=== PATIENT | female | born 1960 | race Caucasian/White ===

== ENCOUNTER 2018-12-08 12:51 | Inpatient (IN) | payer MEDICAID ==
[~2018-12-08] VITALS: Ht 165.1 cm; Wt 101.5 kg
[2018-12-08] MEDS ORDERED: acetaminophen 325mg tablet PO PRN ×2 (14:25)
[2018-12-08] MEDS ORDERED: mag hydrox/Alum hydrox/simeth 30ml oral suspension PO PRN (14:25)
[2018-12-08] MEDS ORDERED: magnesium hydroxide 30ml (MOM) UD suspension PO PRN (14:25)
[2018-12-08] MEDS ORDERED: tuberculin, purif. prot. deriv. 5 units/0.1ml ID ONE (14:25)
--- NOTE | 2018-12-08 17:42 | NUR ---
Nursing ADMIT Progress Note Legal hold: 5150 Client on involuntary status for DTS Report received from: New admit Why are they here: Patient is a 57 year old female who suffers from chronic back pain, anxiety and depression. She was admitted to [facility] after being found face down on the floor with 24, 50mcg fentanyl patches covering her body. A suicide note was found. [place] coma score was 4, respirations decreased and 4mg of Narcan were administered. GCS improved to 10. Other meds found at the scene include baclofen, prochlorperazine, desvenlafaxine, levothyroxine, hydrocodone and oxycontin. *hypothyroidism Assessment What has happened this shift: Patient is brought up to the unit, she points at everyone and states You want Thorazine. She is oriented to the unit by Alexander Dumont and when brought back to her room repeatedly pushes the nurses call button for no reason. She is invasive in other patients space and pushes buttons on roommates bed. Patient has difficulty focusing on task. She refuses to change into unit attire but with redirection does change her pants. RN was able to get patient to sign 2 forms but then patient wanted to draw a picture on the form rather than sign. Patient was not cooperative with admit process. She refused to answer all questions asked. Information obtained was taken from report received from [facility]. Patient states that she is cold and requests another blanket. Shortly after she falls asleep. S/I, H/I: did not answer questions when asked A/VH: did not answer questions when asked Sleep: slept after getting onto the floor ADL's: may need assistance, states she is a fall risk Group attendance:no Were meds taken: N/A Any med S/E: N/A Mental Status Exam Appearance: patient changes into green scrub pants, declines to change into green scrub shirt, hair pulled back into braid. Eye contact: occasional direct Behavior: Bizarre, agitated Speech: varied Mood: Labile...friendly, mild aggression, confused, direct, quiet Affect: restricted Thought process: Disorganized, tangential Thought Content: focused on other people needing/wanting to take Thorazine Cognition: Impaired Insight: Poor Judgment: Poor Interventions PRN's used: none Therapeutic interventions: 1:1 therapeutic assessment, active listening that included positive feedback, medication education, and monitoring, maintained safe therapeutic milieu, encouraged to attend groups, Q 15 min safety checks. Restraints/seclusion/emergency medication: N/A Justification of Continued Inpatient Treatment: Continued therapeutic support and medication management needed to provide stabilization, prevent decompensation and decreasing risk to patient for readmittance.
[2018-12-08] MEDS ORDERED: METO25TA6 PO (19:48)
[2018-12-08] MEDS ORDERED: ASPI81TA47 PO (19:48)
[2018-12-08] MEDS ORDERED: HYDR-4353 PO (19:48)
[2018-12-08] MEDS ORDERED: DOCU100C40 PO (19:48)
[2018-12-08] MEDS ORDERED: CLON-528 PO (19:48)
[2018-12-08] MEDS ORDERED: LEVO25TA7 PO (19:48)
[2018-12-08] MEDS ORDERED: BACL10TA PO (19:48)
[2018-12-08 20:00] VITALS: BP 147/50
[2018-12-08] MEDS: baclofen 10mg tablet PO SCH (20:54)
[2018-12-08] MEDS: metoprolol tartrate 25mg tablet PO SCH (20:58)
--- NOTE | 2018-12-08 22:41 | NUR ---
Nursing Progress Note Legal hold: 5150 Client on involuntary status for DTS Report received from: NAHOMY Davis Why are they here: Patient is a 57 year old female who suffers from chronic back pain, anxiety and depression. She was admitted to [facility] after being found face down on the floor with 24, 50mcg fentanyl patches covering her body. A suicide note was found. [place] coma score was 4, respirations decreased and 4mg of Narcan were administered. GCS improved to 10. Other meds found at the scene include baclofen, prochlorperazine, desvenlafaxine, levothyroxine, hydrocodone and oxycontin. Assessment What has happened this shift: Pt in room sleeping at change of shift. During 1:1, pt state she is wet and cold. Pt had urinated, and the urine had soaked through her clothing and bedding. Pt taken to shower, given new unit scrubs, and bedding changed. Pt states she is incontinent of urine sometimes during the day, but does not wake up to urinate when sleeping. RN provided pt with XL depends and disposable chucks for the evening. Pt denies being suicidal, stating "I did it because the pain was too much. I knew I had the patches somewhere, and I was cleaning and found them and knew what I had to do. My brother got to me before I though. I guess he just loves me a whole bunch." When asked about her support system, pt states she has "my brother who found me, a couple other siblings, and a best friend. Most live in [place]." Pt states "the Dr wants to discontinue the medications, and I know that it is going to be too much pain." Pt does not know how she acquired her back pain, saying "Maybe in middle school sports." Pt offers the following regarding her overdose. "I just have to do this every 12 years. I take a lot and it resets my pain. Then I'm okay for a while." Pt is stable on her feet, but the pain makes position changes difficult. She states she uses a walker/can at home; PT consult will be ordered. Pt compliant with medications. reported being cold, warm blankets provided and room temperature increased. S/I, H/I:Denies A/VH: Denies Sleep: See Charting ADL's: Independent, may need standby until PT evaluates for walker Group attendance: Y - HS Snack Were meds taken: Y Any med S/E: None reported, None observed Mental Status Exam Appearance: Pt showered, wearing unit green pants, scrubs, and depends. Hair was not washed but it is clean and in a braid. Eye contact: Direct Behavior: Cooperative Speech: Slowed, Clear Mood: Friendly, Calm, "I feel okay, tired" Affect: Blunted Thought process: Linear, Tangential at times Thought Content: Being cold, Relaying her suicidal experience and reasoning Cognition: A&Ox4 Insight: Poor Judgment: Poor Interventions PRN's used:None Therapeutic interventions: 1:1 therapeutic assessment, active listening that included positive feedback, medication education, and monitoring, maintained safe therapeutic milieu, encouraged to attend groups, Q 15 min safety checks. Restraints/seclusion/emergency medication: N/A Justification of Continued Inpatient Treatment: Continued therapeutic support and medication management needed to provide stabilization, prevent decompensation and decreasing risk to patient for readmittance. Addendum: 12/08/18 at 2256 by Marilee Jeffers RN BP 142/75, HR 64 prior to Lopressor administration.
[2018-12-09 08:00] VITALS: BP 119/65
[2018-12-09 08:02] LABS: HEMOGLOBIN A1C 5.8 % (4.5-6.2)
[2018-12-09] MEDS: aspirin 81mg tablet.DR PO SCH (08:03)
[2018-12-09] MEDS: docusate sod 100mg capsule PO SCH (08:03)
[2018-12-09] MEDS: baclofen 10mg tablet PO SCH ×3 (08:03→20:23)
[2018-12-09] MEDS: levoTHYROXINE 25mcg tablet PO SCH (08:04)
[2018-12-09] MEDS: metoprolol tartrate 25mg tablet PO SCH ×2 (08:04→20:00)
[2018-12-09 08:08] LABS: CHOL/HDL RATIO 4.1 (0.00-4.99); CHOLESTEROL 176 MG/DL (0-200); HDL CHOLESTEROL 43 MG/DL (35-60); LDL CHOLESTEROL 111 MG/DL (50-100); TRIGLYCERIDES 77 MG/DL (20-135)
[2018-12-09] MEDS: HYDROcodone/acetaminophen 10/325mg tab PO PRN ×2 (08:20→17:02)
[2018-12-09] MEDS ORDERED: venlafaxine 25mg tablet PO ONE (15:50)
--- NOTE | 2018-12-09 16:16 | NUR ---
Nursing Progress Note Legal hold: 5150 Client on involuntary status for DTS Report received from: NAHOMY Davis Why are they here: Patient is a 57 year old female who suffers from chronic back pain, anxiety and depression. She was admitted to [facility] after being found face down on the floor with 24, 50mcg fentanyl patches covering her body. A suicide note was found. [place] coma score was 4, respirations decreased and 4mg of Narcan were administered. GCS improved to 10. Other meds found at the scene include baclofen, prochlorperazine, desvenlafaxine, levothyroxine, hydrocodone and oxycontin. Assessment What has happened this shift: Patient is sleeping at change of shift, no apparent distress observed. When she awakens she states that she is cold, hot tea provided. She gets up and joins others for breakfast in the group room. She takes her medications, education is provided. Patient expresses some upset that her pain meds and klonopin are not stronger. She requests both PRNS at this time. She states she doesnt understand why she cannot have more klonopin. RN provided related education, patient did not ask for it again. RN administered norco as prescribed. Patient uses foul language when describing techs, attempts by other staff to redirect patient to use less derogatory words was unsuccessful. Patient at times is friendly and at others times argumentative and inappropriate. She pulls food off other trays that patients have finished with. She is told not to but continues to do so. She states that she will not tell this RN if she is feeling suicidal stating I want to tell you the right thing so that I can go home. She also states in regards to her brother finding her that Its too bad he found me, Im never going to have the pain meds I need. Patient denies issues with incontinence during the day, she states it happens at night and is due to issues with her spine. S/I, H/I:Denies A/VH: Denies Sleep: 9.25 NOC ADL's: Independent Group attendance: yes Were meds taken: yes Any med S/E: None reported, None observed Mental Status Exam Appearance: Appropriately disheveled Eye contact: Direct Behavior: see above Speech: clear tone, slightly slowed rate and rhythm Mood: varied, see above Affect: Blunted Thought process: moments of tangents Thought Content: how people treat each other, saying the right thing Cognition: A&Ox4 Insight: Poor Judgment: Poor Interventions PRN's used:None Therapeutic interventions: 1:1 therapeutic assessment, active listening that included positive feedback, medication education, and monitoring, maintained safe therapeutic milieu, encouraged to attend groups, Q 15 min safety checks. Restraints/seclusion/emergency medication: N/A Justification of Continued Inpatient Treatment: Continued therapeutic support and medication management needed to provide stabilization, prevent decompensation and decreasing risk to patient for readmittance.
[2018-12-09 19:49] VITALS: BP 99/59
[2018-12-09] MEDS: clonazePAM 0.5mg tablet PO PRN (20:49)
--- NOTE | 2018-12-09 22:20 | NUR ---
Nursing Progress Note Legal hold: 5150 Client on involuntary status for DTS Report received from: NAHOMY Davis Why are they here: Patient is a 57 year old female who suffers from chronic back pain, anxiety and depression. She was admitted to [facility] after being found face down on the floor with 24, 50mcg fentanyl patches covering her body. A suicide note was found. [place] coma score was 4, respirations decreased and 4mg of Narcan were administered. GCS improved to 10. Other meds found at the scene include baclofen, prochlorperazine, desvenlafaxine, levothyroxine, hydrocodone and oxycontin. Assessment What has happened this shift: Pt was in group room at change of shift talking w/SW. 1:1 assessment completed at bedside. Pt denies s/i tonight. States her mood is "better". She had a visit w/family tonight and then socialized w/peers and played board games. She was very pleasant and kind to other patients and sang for them after her family left. She c/o arm wrist pain in her arm, we applied an ice pack for 20 minutes and she states this was helpful. Pt reports appetite is good. Held metoprolol due to bp and pt requested klonopin before going to bed. Pt c/o being cold, addtl blankets given and room temp increased. S/I, H/I:Denies A/VH: Denies Sleep: good ADL's: Independent Group attendance: yes Were meds taken: yes Any med S/E: None reported, None observed Mental Status Exam Appearance: Appropriately disheveled Eye contact: Direct Behavior: see above Speech: WNL Mood: Pleasant, but reports depression Affect: Blunted Thought process: tangential Thought Content: talking about wrist pain, and how she was afraid when she came here but is feeling better now that she is getting to know some of the other patients. Cognition: A&Ox4 Insight: Poor Judgment: Poor Interventions PRN's used:None Therapeutic interventions: 1:1 therapeutic assessment, active listening that included positive feedback, medication education, and monitoring, maintained safe therapeutic milieu, encouraged to attend groups, Q 15 min safety checks. Restraints/seclusion/emergency medication: N/A Justification of Continued Inpatient Treatment: Continued therapeutic support and medication management needed to provide stabilization, prevent decompensation and decreasing risk to patient for readmittance.
[2018-12-10] MEDS: HYDROcodone/acetaminophen 10/325mg tab PO PRN ×2 (05:54→21:23)
[2018-12-10 07:59] VITALS: BP 118/53
[2018-12-10] MEDS ORDERED: venlafaxine 25mg tablet PO SCH (08:00)
[2018-12-10] MEDS: baclofen 10mg tablet PO SCH ×3 (08:10→20:17)
[2018-12-10] MEDS: metoprolol tartrate 25mg tablet PO SCH ×2 (08:10→20:18)
[2018-12-10] MEDS: levoTHYROXINE 25mcg tablet PO SCH (08:11)
[2018-12-10] MEDS: aspirin 81mg tablet.DR PO SCH (08:11)
[2018-12-10] MEDS: docusate sod 100mg capsule PO SCH (08:11)
--- NOTE | 2018-12-10 12:53 | NUR ---
Nursing Progress Note Legal hold: 5250 - Court on 12/11 Client on involuntary status for GD/DTS Report received from NAHOMY Shafer Why they are here: Patient presented to ER reporting she ingested a large amount of Tylenol. She had just learned that her boyfriend had killed himself and she wanted to be with him. She continues to express a suicidal plan which involves cutting her wrists or jumping off of a bridge. Assessment: What has happened this shift? Patient is observed sleeping at change of shift. Patient was up for breakfast. Patient is social but also at time intrusive when other patients getting there medication. Patient has been irritable all morning about the remote. Staff attempts to assist patient in selecting a show but patient declines all suggestions. Patient cussing at staff and calling staff names, though no signs of aggression observed. Patient reports she is feeling depressed and has continued S/I with the same plan. She went to morning group today. She takes her medications with encouragement. S/I, H/I: SI with plan to either cut her wrists or jump off a building A/VH: Denies Sleep: 6.75 hrs last night. ADL's: independent, Group attendance: yes Were meds taken: yes Any med S/E: none observed, none reported Mental Status Exam Appearance: appropriate Eye contact: Direct Behavior: Cooperative Speech: soft tone, normal rate/rhythm Mood: Irritated Affect: Flat Thought process: Linear Thought Content: Suicidal thoughts Cognition: A&Ox4 Insight: Poor Judgment: Poor Interventions PRN's used: None Therapeutic interventions: 1:1 therapeutic assessment, active listening that included positive feedback, medication education, and monitoring, maintained safe therapeutic milieu, encouraged to attend groups, Q 15 min safety checks. Restraints/seclusion/emergency medication: None Justification of Continued Inpatient Treatment: Patient in crisis, suicide attempt due to loss of boyfriend. Continued therapeutic support and medication management needed to provide stabilization, prevent decompensation and decreasing risk to patient for readmittance.
[2018-12-10] MEDS ORDERED: clonazePAM 0.5mg tablet PO ONE (13:50)
[2018-12-10] MEDS: oxyCODONE SR 10mg (sust. release) tab PO SCH (20:16)
[2018-12-10 20:47] VITALS: BP 141/70
--- NOTE | 2018-12-11 01:20 | NUR ---
Nursing Progress Note Legal hold: 5250 - Court on 12/11 Client on involuntary status for GD/DTS Report received from NAHOMY Ferguson Why they are here: Patient presented to ER reporting she ingested a large amount of Tylenol. She had just learned that her boyfriend had killed himself and she wanted to be with him. She continues to express a suicidal plan which involves cutting her wrists or jumping off of a bridge. Assessment: Patient was sitting in the community room with peers, talking about another peer that was not in the room. She perseverated on this peer for a few minutes, paranoid that they might try to kill her in her sleep. She calls them names and is visibly getting worked up. Barrel Bander reminds pt that speaking badly about others was not nice, to which she just rolled her eyes. Barrel Bander reassured patient that she is safe on the unit, the halls are monitored, and Q15 minute safety checks are done around the clock. This statement made her smile and say, "good." She is cooperative with assessment and receives her HS medications which include OxyContin. When keno writer / runner gave her the medication she asks, "can't I have 2 oxys?" Barrel Bander educates pt on the medication and dosing, she verbalizes understanding. 60 minutes later pt comes up to keno writer / runner and requests prn [place]. Barrel Bander explains to pt that she just received her OxyContin 1 hour ago, but patient starts to get upset and says, "I know I did, but it didn't do anything, and I need the [place] now." Pt was given the norco, and she was upset there was "only one pill." She states, "these don't do anything." She denies any suicidal ideation, AH/VH. PPD read this evening at 2200, results 0mm induration S/I, H/I: Denies this shift A/VH: Denies Sleep: see sleep assessment notation ADL's: independent, Group attendance: teller vault, no groups Were meds taken: yes Any med S/E: none observed, none reported Mental Status Exam Appearance: slightly disheveled Eye contact: Direct Behavior: Cooperative, paranoid Speech: normal rate/rhythm Mood: paranoid Affect: Flat, labile Thought process: Linear Thought Content: perseverating on other patients Cognition: A&Ox4 Insight: Poor Judgment: Poor Interventions PRN's used: batsheva Therapeutic interventions: 1:1 therapeutic assessment, active listening that included positive feedback, medication education, and monitoring, maintained safe therapeutic milieu, reassured safety, Q 15 min safety checks. Restraints/seclusion/emergency medication: None Justification of Continued Inpatient Treatment: Patient in crisis, suicide attempt due to loss of boyfriend. Continued therapeutic support and medication management needed to provide stabilization, prevent decompensation and decreasing risk to patient for readmittance.
[2018-12-11] MEDS: baclofen 10mg tablet PO SCH ×3 (07:46→20:16)
[2018-12-11] MEDS: oxyCODONE SR 10mg (sust. release) tab PO SCH ×2 (07:47→20:18)
[2018-12-11] MEDS: docusate sod 100mg capsule PO SCH (07:48)
[2018-12-11] MEDS: levoTHYROXINE 25mcg tablet PO SCH (07:48)
[2018-12-11] MEDS: aspirin 81mg tablet.DR PO SCH (07:49)
[2018-12-11] MEDS: metoprolol tartrate 25mg tablet PO SCH ×2 (07:50→20:17)
[2018-12-11 07:55] VITALS: BP 122/59
[2018-12-11] MEDS ORDERED: venlafaxine XR 37.5mg cap (Q24H) PO SCH (08:00)
--- NOTE | 2018-12-11 10:40 | NUR ---
Nursing Progress Note Legal hold: 5250 - Court on 12/11 Client on involuntary status for GD/DTS Report received from NAHOMY Cullen with the use of SBAR Why they are here: Patient presented to ER reporting she ingested a large amount of Tylenol. She had just learned that her boyfriend had killed himself and she wanted to be with him. She continues to express a suicidal plan which involves cutting her wrists or jumping off of a bridge. Assessment: What has happened this shift? Pt in bed at the start of shift. She is incontinent of urine. Per YISEL Adames, the patient is soaked from her shoulders to her feet through the chux onto the mattress. Pt is fine if in control of the TV remote. She becomes angry if she does not have the TV on and control of what is being watched. S/I, H/I: SI with plan to either cut her wrists or jump off a building A/VH: Denies Sleep: Does not sleep during the day ADL's: Requires prompting to shower and care for ADLs Group attendance: yes Were Meds taken: yes Any med S/E: none observed, none reported Mental Status Exam Appearance: appropriate Eye contact: Direct Behavior: Cooperative Speech: soft tone, normal rate/rhythm Mood: Irritated Affect: Flat Thought process: Linear Thought Content: Suicidal thoughts Cognition: A&Ox4 Insight: Poor Judgment: Poor Interventions PRN's used: None Therapeutic interventions: 1:1 therapeutic assessment, active listening that included positive feedback, medication education, and monitoring, maintained safe therapeutic milieu, encouraged to attend groups, Q 15 min safety checks. Restraints/seclusion/emergency medication: None Justification of Continued Inpatient Treatment: Patient in crisis, suicide attempt due to loss of boyfriend. Continued therapeutic support and medication management needed to provide stabilization, prevent decompensation and decreasing risk to patient for readmittance. Addendum: 12/11/18 at 1755 moe Moran RN Pt is now on a Voluntary status
[2018-12-11] MEDS: HYDROcodone/acetaminophen 10/325mg tab PO PRN ×2 (16:55→21:34)
[2018-12-11] MEDS: clonazePAM 0.5mg tablet PO PRN (16:56)
[2018-12-11 19:00] VITALS: BP 117/72
--- NOTE | 2018-12-11 23:18 | NUR ---
Nursing Progress Note Legal hold: voluntary Client on involuntary status for DTS Report received from: NAHOMY Galo Why are they here: Patient is a 57 year old female who suffers from chronic back pain, anxiety and depression. She was admitted to [facility] after being found face down on the floor with 24, 50mcg fentanyl patches covering her body. A suicide note was found. [place] coma score was 4, respirations decreased and 4mg of Narcan were administered. GCS improved to 10. Other meds found at the scene include baclofen, prochlorperazine, desvenlafaxine, levothyroxine, hydrocodone and oxycontin. Assessment What has happened this shift: Patient had visitors this shift, which she appeared happy to see, smiling and laughing with them. When asked how her day went she replied, "it went fine, I want my drugs." Pt was educated on HS medication times and what medications she would be getting and she voiced understanding. Pt was medication compliant, and cooperative with assessment. Right before bed she said to remote mortgage underwriter, "you know the girl next door wants to kill me right?" "You need to keep an eye on my room tonight to make sure she can't come in and kill me." Cake Puncher assured pt of safety. She also requested to be woken up at 0400 to go to the bathroom to try to prevent from wetting the bed. S/I, H/I:Denies A/VH: Denies Sleep: see sleep assessment notation ADL's: Independent Group attendance: maintenance technician 3rd shift, no groups Were meds taken: yes Any med S/E: None reported, None observed Mental Status Exam Appearance: wearing same clothing as yesterday Eye contact: Direct Behavior: talkative, engages with staff and visitors Speech: WNL Mood: paranoid Affect: flat Thought process: circumstantial Thought Content: paranoia Cognition: A&Ox4 Insight: Poor Judgment: Poor Interventions PRN's used:[place] Therapeutic interventions: 1:1 therapeutic assessment, active listening that included positive feedback, medication education, and monitoring, maintained safe therapeutic milieu, Q 15 min safety checks. Restraints/seclusion/emergency medication: N/A Justification of Continued Inpatient Treatment: Continued therapeutic support and medication management needed to provide stabilization, prevent decompensation and decreasing risk to patient for readmittance.
[2018-12-12] MEDS: HYDROcodone/acetaminophen 10/325mg tab PO PRN (05:29)
[2018-12-12 07:55] VITALS: BP 125/53
[2018-12-12] MEDS ORDERED: PRISTIQ 100 MG PO SCH ×2 (08:00)
[2018-12-12] MEDS: oxyCODONE SR 10mg (sust. release) tab PO SCH (08:02)
[2018-12-12] MEDS: docusate sod 100mg capsule PO SCH (08:02)
[2018-12-12] MEDS: aspirin 81mg tablet.DR PO SCH (08:02)
[2018-12-12] MEDS: levoTHYROXINE 25mcg tablet PO SCH (08:02)
[2018-12-12] MEDS: baclofen 10mg tablet PO SCH ×2 (08:03→13:53)
[2018-12-12 08:04] VITALS: BP_SYST 125
[2018-12-12] MEDS: metoprolol tartrate 25mg tablet PO SCH (08:04)
--- NOTE | 2018-12-12 12:30 | NUR ---
Nursing Progress Note Legal hold: Voluntary Client on involuntary status for DTS Report received from: NAHOMY Williamson Why are they here: Patient is a 57 year old female who suffers from chronic back pain, anxiety and depression. She was admitted to [facility] after being found face down on the floor with 24, 50mcg fentanyl patches covering her body. A suicide note was found. [place] coma score was 4, respirations decreased and 4mg of Narcan were administered. GCS improved to 10. Assessment What has happened this shift: Pt awake laying in bed on her back at the start of shift complaining, "I am so cold I am going to have a stroke." Pt provided warm blanket. She is medication compliant requesting to take AM dose of Oxycontin even after being given a [place] PRN approximately 90 minutes ago. Oxybutnin added to medication regimen due to nighttime incontinence S/I, H/I:Denies A/VH: Denies Sleep: does not sleep during the day. ADL's: Independent Group attendance: Y Were Meds taken: Y Any med S/E: None reported, None observed Mental Status Exam Appearance: Appropriately dressed and clean Eye contact: Direct Behavior: talkative, engages with staff and visitors Speech: WNL Mood: Irritable, inpatient w/staff Affect: flat Thought process: circumstantial Thought Content: Defensiveness Cognition: A&Ox4 Insight: Poor Judgment: Poor Interventions PRN's used: None Therapeutic interventions: 1:1 therapeutic assessment, active listening that included positive feedback, medication education, and monitoring, maintained safe therapeutic milieu, Q 15 min safety checks. Restraints/seclusion/emergency medication: N/A Justification of Continued Inpatient Treatment: Pt appears to be at her baseline as she is no longer suicidal. Pt reports she became suicidal after being told by Dr. Sultana that he was going to have to taper her off of Oxycontin. Pt reports chronic "unbearable" pain in her spine and legs and the thought of living in pain was "too much." Per pt. Dr. Moran and Dr. Sultana met and discussed out-pt treatment.
[2018-12-12] MEDS ORDERED: oxybutynin 5mg tablet PO SCH (13:00)
--- NOTE | 2018-12-12 13:20 | NUR ---
DISCHARGE NOTE Pt met with this lyric writer and her brother for discharge. Pt agreed to follow up with PCP and Dr. Fitzgerald for out pt services. Appt. are scheduled pt agrees to go. Provided education on the [facility] in [place] provided address and phone number encouraging pt to seek treatment through this clinic. All home prescription Meds stored in the pharmacy returned to pt. to take home. Personal belongings inventoried and reviewed w/pt and all signatures obtained from pt. Pt left to go to home with her brother, Greg.
[2018-12-12] MEDS ORDERED: OXYC10TA57 PO (21:46)
== END 2018-12-12 13:20 | disposition home or self-care (01) | DRG 754 ==
LOC: ADULT MH 14:07
PROVIDERS: ADMIT Psychiatry & Neurology Psychiatry; ATTEND Psychiatry & Neurology Psychiatry
DX: F32.9 Major depressive disorder, single episode, unspecified (principal); E66.01 Morbid (severe) obesity due to excess calories; E03.9 Hypothyroidism, unspecified; E11.9 Type 2 diabetes mellitus without complications; E78.5 Hyperlipidemia, unspecified; G89.29 Other chronic pain; I10 Essential (primary) hypertension; M19.90 Unspecified osteoarthritis, unspecified site; R32 Unspecified urinary incontinence; Z96.653 Presence of artificial knee joint, bilateral; Z60.2 Problems related to living alone; F60.9 Personality disorder, unspecified; T40.4X2A Poisoning by other synthetic narcotics, intentional self-harm, initial encounter; M54.9 Dorsalgia, unspecified; Z88.0 Allergy status to penicillin; F41.9 Anxiety disorder, unspecified; Z79.899 Other long term (current) drug therapy; Z88.2 Allergy status to sulfonamides; Z88.1 Allergy status to other antibiotic agents; Z88.8 Allergy status to other drugs, medicaments and biological substances; Z79.82 Long term (current) use of aspirin; Z79.890 Hormone replacement therapy; Z68.37 Body mass index [BMI] 37.0-37.9, adult; Z72.89 Other problems related to lifestyle; Y92.89 Other specified places as the place of occurrence of the external cause
CPT/HCPCS: 36415; 73100; 80061; 83036; 84443; 87070

== ENCOUNTER 2019-01-16 20:49 | Emergency (ER) | payer MEDICAID ==
[~2019-01-16] VITALS: Ht 162.6 cm; Wt 156.8 kg
[~2019-01-16 20:49] MED LIST: ASPI81TA47 PO; BACL10TA PO; CLON-528 PO; DOCU100C40 PO; HYDR-4353 PO; LEVO25TA7 PO; METO25TA6 PO; OXYC10TA57 PO
[2019-01-16 23:53] LABS: BASOPHILS # (AUTO) 0.1 X10'3 (0-0.2); BASOPHILS % (AUTO) 0.8 % (0-1); EOSINOPHILS # (AUTO) 0.1 X10'3 (0-0.9); EOSINOPHILS % (AUTO) 1.4 % (0-6); HEMATOCRIT 44.6 % (35.0-45.0); HEMOGLOBIN 14.9 g/dl (12.0-16.0); LYMPHOCYTES % (AUTO) 33.7 % (21-51); MEAN CORPUSCULAR HEMOGLOBIN 30.8 PG (27.0-31.0); MEAN CORPUSCULAR HGB CONC 33.4 g/dL (33.0-36.5); MEAN CORPUSCULAR VOLUME 92.2 FL (78-98); MEAN PLATELET VOLUME 7.9 FL (7.4-10.4); MONOCYTES % (AUTO) 11.6 % (2-12); NEUTROPHILS # (AUTO) 4.7 X10'3 (1.8-7.7); NEUTROPHILS % (AUTO) 52.5 % (42-75); PLATELET COUNT 342 X10'3 (140-440); RED BLOOD COUNT 4.84 X10'6 (4.20-5.60); RED CELL DISTRIBUTION WIDTH 12.8 % (11.5-14.5); WHITE BLOOD COUNT 8.9 X10'3 (4.5-11.0)
[2019-01-16 23:58] LABS: ALANINE AMINOTRANSFERASE 138 U/L (12-78); ALBUMIN 4.1 G/DL (3.4-5.0); ALBUMIN/GLOBULIN RATIO 1.1 (1.1-1.5); ALKALINE PHOSPHATASE 59 IU/L (46-116); ANION GAP 10 (8-16); ASPARTATE AMINO TRANSFERASE 56 U/L (10-37); BILIRUBIN,TOTAL 0.4 MG/DL (0.1-1.0); BLOOD UREA NITROGEN 16 MG/DL (7-18); BUN/CREATININE RATIO 14.8 (6.6-38.0); CHLORIDE 102 MMOL/L (99-107); CREATININE 1.08 MG/DL (0.40-0.90); GLUCOSE 123 MG/DL (70-104); POTASSIUM 3.5 MMOL/L (3.5-5.1); SODIUM 137 MMOL/L (135-145); TOTAL CARBON DIOXIDE 25.1 MMOL/L (24-32); TOTAL PROTEIN 7.7 G/DL (6.4-8.2); eGFR 52 ML/MIN
[2019-01-17 00:06] LABS: ETHANOL < 0.010 GM/DL (0.0-0.010)
--- NOTE | 2019-01-17 03:04 | NUR ---
WAITING FOR TELE-PSYCH MD AND THEN POSSIBLE DISCHARGE.
--- NOTE | 2019-01-17 04:59 | NUR ---
I CALLED TELE-PSYCH, PT IS IN THE [facility], THEY ARE EXPERIENCING HIGH CALL VOLUMES AND DO NOT KNOW WHEN THE TELE-PSYCH CALL WILL BE.
--- NOTE | 2019-01-17 05:01 | NUR ---
PT SLEEPING, FAMILY MEMBER AT THE BEDSIDE.
--- NOTE | 2019-01-17 07:23 | NUR ---
SPOKE WITH TELEPSYC MD AND UPDATED ON PLAN. STATED WILL SPEAK TO PT THEN FAMILY AFTERWARDS. TELEPSYC IN ROOM PT SAT UP IN BED WITH LIGHTS ON. VERBALIZED UNDERSTANDING OF SPEAKING TO PSTUCKER BACA.
[2019-01-17 08:32] LABS: CLARITY,URINE CLEAR (Clear); COLOR,URINE YELLOW (Yellow); GLUCOSE, URINE NEGATIVE (Neg); KETONES,URINE NEGATIVE (Neg); LEUKOCYTE ESTERASE ,URINE NEGATIVE (Neg); NITRITES, URINE NEGATIVE (Neg); OCCULT BLOOD,URINE NEGATIVE (Neg); PROTEIN,URINE NEGATIVE (Neg); UROBILINOGEN,URINE 0.2 E.U/dL (0.2-1.0)
[2019-01-17 08:34] LABS: UA COLLECTION TYPE STRAIGHT CATH
[2019-01-17 08:45] LABS: URINE AMPHETAMINE SCREEN NEGATIVE (Neg); URINE BARBITUATE SCREEN NEGATIVE (Neg); URINE BENZODIAZEPINES SCREEN NEGATIVE (Neg); URINE CANNABINOID SCREEN NEGATIVE (Neg); URINE COCAINE SCREEN NEGATIVE (Neg); URINE METHADONE SCREEN NEGATIVE (Neg); URINE OPIATE SCREEN POSITIVE (Neg); URINE PHENCYCLIDINE SCREEN NEGATIVE (Neg)
--- NOTE | 2019-01-17 11:07 | NUR ---
pt up to use restroom, ambulated slowly, but gait steady.
--- NOTE | 2019-01-17 11:07 | NUR ---
pt moved via wheelchair to bed 24 in OF.
[2019-01-17] MEDS ORDERED: LEVO500T2 PO (11:53)
[2019-01-17] MEDS ORDERED: CITA10TA9 PO (11:53)
[2019-01-17] MEDS: levoFLOXACIN 500mg tablet PO SCH (12:30)
[2019-01-17] MEDS ORDERED: CITALOpram 10mg tablet PO SCH (12:30)
[2019-01-17] MEDS: metoprolol tartrate 25mg tablet PO SCH ×2 (12:51→20:50)
--- NOTE | 2019-01-17 13:02 | NUR ---
Nursing Note: Pt's sister reports she gave the pt Levofloxacin this morning. Held 1230 dose of medication. Will continue to monitor.
--- NOTE | 2019-01-17 14:05 | NUR ---
pt is having consult with Rachel from mental health now.
--- NOTE | 2019-01-17 14:28 | NUR ---
pt is sitting quietly in bed
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
--- NOTE | 2019-01-17 17:14 | NUR ---
Nursing Note: Dr. Hernandez at the pt's bedside to assess pt. Pt's brother and sister also at bedside. Will continue to monitor.
--- NOTE | 2019-01-17 19:23 | NUR ---
Dr Hernandez on unit to evaluate pt and speak with family.
--- NOTE | 2019-01-17 19:36 | NUR ---
pt has open head wound on the crown of her head left of midline. Wound is 1.2 x 2 cm and appears superficial, wound bed pink granulation tissue. Wound edges clean. Scant clear, serous drainge. Picture taken, bacitracin and dressing applied. Pt states that she fell and hit her head some time ago. PT states that [facility] stapled the head lac and gave her antibiotics for wound infection. The philipp were removed. Wound is under pressure when pt sleeps.
--- NOTE | 2019-01-17 20:19 | NUR ---
Pt family has left for the evening. Pt in bed, resting quietly.
[2019-01-17] MEDS: acetaminophen 325mg tablet PO PRN (20:51)
--- NOTE | 2019-01-17 21:20 | NUR ---
Pt moans when moving in bed. When asked if she is in pain, patient states she hurts everywhere. When asked where the worst of her pain is located pt states, "The whites of my eyes hurt the worst, the yellow part hurts too but not as much as the whites." Pt given Tylenol for pain at the same time as her other evening medications.
--- NOTE | 2019-01-17 22:24 | NUR ---
Pt resting comfortably in bed on her back. Respirations even and unlabored.
--- NOTE | 2019-01-17 23:00 | NUR ---
Pt sleeping quietly in bed. Respirations even and unlabored.
--- NOTE | 2019-01-18 01:48 | NUR ---
Pt sleeping quietly in bed. Respirations even and unlabored.
--- NOTE | 2019-01-18 04:48 | NUR ---
Pt sleeping quietly in bed. Respirations even and unlabored.
--- NOTE | 2019-01-18 05:49 | NUR ---
Pt sleeping quietly in bed. Respirations even and unlabored.
--- NOTE | 2019-01-18 07:04 | NUR ---
Pt is lying in bed on her back. She presents as calm and cooperative. She is asking for medication for pain. This nurse will get her tylenol that is ordered.
[2019-01-18] MEDS: levoTHYROXINE 25mcg tablet PO SCH (07:32)
[2019-01-18] MEDS: levoFLOXACIN 500mg tablet PO SCH (07:32)
[2019-01-18] MEDS: acetaminophen 325mg tablet PO PRN ×3 (07:33→19:35)
[2019-01-18] MEDS ORDERED: levoTHYROXINE 25mcg tablet PO SCH (08:00)
[2019-01-18] MEDS: metoprolol tartrate 25mg tablet PO SCH ×2 (08:41→20:21)
[2019-01-18] MEDS: venlafaxine XR 37.5mg cap (Q24H) PO SCH (08:41)
--- NOTE | 2019-01-18 09:30 | NUR ---
Pt is up to the bathroom. Afterwards she complains of pain and asks when her next dose is due. Let youngn know it is another four hours until Tylenol is due. She ate most of her breakfast and took her medications as prescribed.
--- NOTE | 2019-01-18 11:45 | NUR ---
Pt requesting pain medication. Informed pt that she wasn't able to receive any pain medication until 1330.
--- NOTE | 2019-01-18 12:21 | NUR ---
Pt lying in bed with eyes closed but groaning. SHe states her pain level is 10/10. Spoke with provider and was not given a new order for pain meds. Pt recently overdosed on her pain medications. She is not in distress and is able to move freely and take care of ADLs
--- NOTE | 2019-01-18 13:12 | NUR ---
Patient ate about half of her lunch, but had difficulty feeding herself. She also had difficulty positioning herself in the bed and was assisted and redirected
--- NOTE | 2019-01-18 14:19 | NUR ---
pt's brother leaves as the sister bob arrives to the pt's bedside.
--- NOTE | 2019-01-18 14:34 | NUR ---
pt's sister is done with her visit.
--- NOTE | 2019-01-18 15:14 | NUR ---
Pt is asleep on her back with no signs of distress. Before going to sleep she reported that her pain was 1/10
--- NOTE | 2019-01-18 15:33 | NUR ---
Pt up to the bathroom
--- NOTE | 2019-01-18 16:33 | NUR ---
Pt is lying in bed on her back in no distress. Her respirations are even and unlabored.
--- NOTE | 2019-01-18 17:09 | NUR ---
Pt ambulated to the bathroom on her own. She ambulates appropriately and appears to be in no distress.
--- NOTE | 2019-01-18 17:21 | NUR ---
Pt comes up to the nurses station. She is staring past the nurse to the wall. Nurse asks "what are you looking at." Pt answers "I am looking at the temperatures on [place]." She has a very flat affect. SHe then attempts to walk out of the unit and is redirected succesfully.Pt is now reading in a chair next to her bed.
--- NOTE | 2019-01-18 18:37 | NUR ---
Patient's family at bedside. NAHOMY Herzog gave patient release of information per [facility] request to [facility], Rachel is able to give information to the family.
--- NOTE | 2019-01-18 18:54 | NUR ---
Patient awake and alert. RN asked patient why she is here. Patient states she has been confused and depressed. Patient denies wanting to hurt herself. Patient had been ambulatory, steady gait to BR. Patient talking to herself after RN stepped away. Continue to monitor.
--- NOTE | 2019-01-18 19:10 | NUR ---
Patient attempting to leave and Security called. Security stated that they could not stop her because she doesn't have a psychiatric hold. RN explained that patient does not have a hold but pt is not competent to be out in the streets and if she got hurt, we would be liable. RN explained to that is may not be "legal" to keep her from walking out, however it is ethical to keep her safe. went to call his order department supervisor and came back to tell RN that they would attempt to talk her to her room but they would not stop her. RN advised Security that she would not call them for their help and RN would stop patient using the least amount of touch possible to redirect patient back to her room.
[2019-01-18] MEDS: lactobacillus rhamnosus 10,000 MMU CELLS/CAPSULE PO SCH (20:20)
--- NOTE | 2019-01-18 20:29 | NUR ---
Neena, sister is contact finger assembler. [phone]. Please give number to rn social services on Friday 01/19.
[2019-01-18] MEDS ORDERED: QUEtiapine 25mg tablet PO SCH (21:00)
--- NOTE | 2019-01-18 23:10 | NUR ---
Patient sleeping supine. No distress observed. Continue to monitor.
--- NOTE | 2019-01-19 01:17 | NUR ---
Patient sleeping supine. RN placed blankets over patient and patient awoke briefly. No distress observed. Continue to monitor.
--- NOTE | 2019-01-19 03:14 | NUR ---
Patient sleeping, no restlessness observed. Continue to monitor.
--- NOTE | 2019-01-19 04:46 | NUR ---
Patient sleeping on right side. No distress observed. Continue to monitor.
--- NOTE | 2019-01-19 06:31 | NUR ---
Pt ambulated to bathroom, fresh linen placed on bed. Pt provided with fresh gown
--- NOTE | 2019-01-19 08:30 | NUR ---
Spoke with pt at bedside while administering am meds. Pt reported pain 10/10 in her posterior neck. C/O "pain is chronic and is a sharp pain." Gave Tylenol as ordered by at 0830. Pt's ID band was located in pts chart at the nurse's station, but was unable to scan prior to medication administration. A new ID band was obtained and placed on pt. Pt reports she is not suicidal but stated "I have thought about it in the past but do not think about it now." Pt reports she has a multiple family members who are able to help her right now." Resting in bed.
[2019-01-19] MEDS: lactobacillus rhamnosus 10,000 MMU CELLS/CAPSULE PO SCH (08:54)
[2019-01-19] MEDS: acetaminophen 325mg tablet PO PRN ×2 (08:54→13:32)
[2019-01-19] MEDS: levoTHYROXINE 25mcg tablet PO SCH (08:55)
[2019-01-19] MEDS: levoFLOXACIN 500mg tablet PO SCH (08:55)
[2019-01-19] MEDS: venlafaxine XR 37.5mg cap (Q24H) PO SCH (08:55)
[2019-01-19] MEDS: metoprolol tartrate 25mg tablet PO SCH (08:55)
--- NOTE | 2019-01-19 10:30 | NUR ---
Pt has been sleeping. Pt's sister, Neena @ [phone] arrived and is at pts bedside. Pt resting at this time. Paged SS per Neena's request to check their availability today to speak with Neena and pt for a consult. Spoke with NAJMA Stephenosn, who immediately came over to ED to speak with daughter at this time. Pt reports that the Tylenol has not "helped my neck pain at all." Pt reports her pain is a 10/10. Went to ED to discuss case with Dr. Moon, and determine if pt can receive a different pain medication to address chronic neck pain. Spoke with Dr. Moon who informed that she would review pts chart and notify of new medication orders.
--- NOTE | 2019-01-19 11:35 | NUR ---
NAJMA Stephenson arrived to speak with pts daughterNeena. Seema interviewed pts daughter and then spoke with pt. After interviewing pt and daughter, Angelina discussed if pt was a viable admission, or would pt be more likely for discharge today. Review of Dr. Hernandez's dictated note and ER Admission notes by Seema was done. Angelina spoke directly with Danitza, ED focuser and discussed case at approximately 1215. Per Dr. Hernandez, pt was diagnosed with "Pseudo Dementia." Per Danitza there was no medical need to admit the patient to the hospital at this time and pt will be discharged by Dr. Moon today. Angelina met with pts daughter, Neena, who was extremely disappointed, and continued to say over and over "Should I walk out of here right now without her?" Neither of us answered Neena's question. Seema again discussed the previous components of the discharge that she has set up once the patient is discharged to home today. Seema spoke with JF Shah, who will arrange a referral to [facility] to include a Nurse visit, OT, PT and a Behavioral Health Nurse to visit. Informed Neena that JF Shah will make written referral to [facility] later today at approximately 4pm. NAJMA Stephenson has also arranged for communication with [facility] to get the patient an [facility] worker to their home for an evaluation as soon as possible. NAJMA Stephenson called (Pt's PCP) at [facility] to assist in arranging a follow up appt with Dr. Sultana this week. (1215) Spoke with Dr. Moon regarding current pt status and discussion with Danitza. Dr. Moon stated she will be over to write discharge orders and write RX for Seroquel 50 mg po hs (Per Dr. Hernandez), until she can get a prescription with Dr. Hernandez. (1300) Pts sister, Neena left the facility. Pt ate 50% of her lunch.
--- NOTE | 2019-01-19 14:26 | NUR ---
Ambulated pt to bathroom with standby assist of one. Pt did not require any assistance while ambulating to the bathroom. Tolerated well. Pt was steady on her feet. Pt requested Tylenol 2 tabs for c/o neck pain. Pt had relief down to pain level of "4" after taking Tylenol.
[2019-01-19 14:45] VITALS: BP 129/81
--- NOTE | 2019-01-19 14:45 | NUR ---
SS met w/pt & sister Neena in the ED-Overflow. SS discussed the very real possibility of pt being d/c home as there does not appear to be any acute medical conditions requiring hospitalization at this time. SS engaged sister via ID & CBT strategies (scaling questions) to determine sister's current standing w/re to taking pt home. Per scaling strategies, sister is not willing to take pt home @ this point in time. SS continue to maintain engagement w/sister and was able to determine that family is concern that pt requires 24/7 care and that family unable to provide this level of care for patient. Sister is requesting for pt to be admitted to the hospital. SS & RN met w/ED fruit picker machine operator and was informed that pt does not meet admission protocol and will not be admitted to the hospital. SS informed pt's sister of this and encouraged her to work w/SS to see if we can come up w/a dcp that would enable family to ensure pt's safety while pt waits for her services w/various community based agencies to start up. Pt's sister still refusing to take pt home and informed SS that pt has no family support, SS informed her that since pt has a place to return to, she will be d/c to her home, pt's sister asked what if pt were homeless, SS informed her that SS would coordinate pt's access to [facility] services. At this point, pt's sister came around and agreed that family will need to step in to provide some initial support. SS was able to ascertain that family took issue w/having to provide some level of care for pt while pt waits for services w/various agencies to start. SS had t/c with [facility] and confirmed that pt's [facility] application was received last Saturday, provided family with contact info to [facility] to f/u at home, provided family w/contact info to [facility] (pt's PMD & MH providers) to access post-hospitalization appointments for pt. SS also coordinated the resumption of HH services with [facility]. Family expressed disappointment w/dcp SS validated & normalized family's disappointment & concerns but maintained that pt will be discharging.
[2019-01-19] MEDS ORDERED: QUET50TA PO (14:46)
--- NOTE | 2019-01-19 15:15 | NUR ---
Received discharge paperwork from Dr. Moon, and discharge prescription for Seroquel 50mg po hs written by Dr. Moon. Reviewed discharge paperwork with patient while pts sister, Neena, spoke on cell phone behind nurse's station from approximately 1405 to 1515. Pt signed discharge paperwork. Rx given to pt. TC placed to [facility] Transportation at to arrange transportation to pts home. Received information from [facility] that [facility] will arrive to pick pt up at approximately 3:35 pm, and the courtesy car driver's name is Danitza. Per [facility], pt must be in front ED lobby approximately 5 minutes ahead of time. Daquan called ED to pickup pts clothes and transfer to pt in ED Overflow.
== END 2019-01-19 14:55 | disposition home or self-care (01) ==
LOC: ER 20:49
DX: F31.9 Bipolar disorder, unspecified (principal); F60.3 Borderline personality disorder; E03.9 Hypothyroidism, unspecified; Z98.890 Other specified postprocedural states; Z88.0 Allergy status to penicillin; Z88.2 Allergy status to sulfonamides; Z88.1 Allergy status to other antibiotic agents; Z91.040 Latex allergy status; Z79.82 Long term (current) use of aspirin; Z79.899 Other long term (current) drug therapy; Z56.0 Unemployment, unspecified; Z60.2 Problems related to living alone
CPT/HCPCS: 36415; 80053; 80305; 80320; 81003; 84443; 85025; 99284; 99285

== ENCOUNTER 2019-01-19 21:21 | Emergency (ER) | payer MEDICAID ==
[~2019-01-19] VITALS: Ht 165.1 cm; Wt 104.5 kg
[~2019-01-19 21:21] MED LIST changes: -ASPI81TA47 PO; -BACL10TA PO; +CITA10TA9 PO; -CLON-528 PO; -DOCU100C40 PO; -HYDR-4353 PO; +LEVO500T2 PO; -OXYC10TA57 PO; +QUET50TA PO
[2019-01-19] MEDS ORDERED: magnesium 4gm in 100ml NS 100 ML IV ONE (21:35)
[2019-01-19] MEDS ORDERED: charcoal, activated 50 GM/240 ML bottle PO ONE (21:35)
[2019-01-19 21:58] LABS: BASOPHILS # (AUTO) 0.1 X10'3 (0-0.2); BASOPHILS % (AUTO) 0.8 % (0-1); EOSINOPHILS # (AUTO) 0.1 X10'3 (0-0.9); EOSINOPHILS % (AUTO) 1.6 % (0-6); HEMATOCRIT 41.4 % (35.0-45.0); LYMPHOCYTES # (AUTO) 2.7 X10'3 (1.1-4.8); LYMPHOCYTES % (AUTO) 34.4 % (21-51); MEAN CORPUSCULAR HEMOGLOBIN 30.7 PG (27.0-31.0); MEAN CORPUSCULAR HGB CONC 33.9 g/dL (33.0-36.5); MEAN CORPUSCULAR VOLUME 90.6 FL (78-98); MEAN PLATELET VOLUME 7.8 FL (7.4-10.4); MONOCYTES # (AUTO) 0.8 X10'3 (0-0.9); MONOCYTES % (AUTO) 9.7 % (2-12); NEUTROPHILS # (AUTO) 4.2 X10'3 (1.8-7.7); NEUTROPHILS % (AUTO) 53.5 % (42-75); PLATELET COUNT 307 X10'3 (140-440); RED BLOOD COUNT 4.57 X10'6 (4.20-5.60); RED CELL DISTRIBUTION WIDTH 12.9 % (11.5-14.5); WHITE BLOOD COUNT 7.8 X10'3 (4.5-11.0)
--- NOTE | 2019-01-19 22:00 | NUR ---
CALL TO POISON CONTROL AT THIS TIME. RECOMMEND; ACTIVATED CHARCOAL, WATCH FOR SEDATION, SEIZURE, ST, QT PROLONGATION, WIDENING QRS, FINANCIAL MARKET DEALER, EKG, REPEAT EKG IN 3-4HRS, IF QRS >120 THEN ADMIN BOLUS AND GIVE 2 AMP BICAB IVP AND REPEAT 1 AMP BICARB IF QRS <120. WATCH FOR LOW BP AND ADMIN IVF FOR RESUSITATION, LEVOPHED MAY BE ADMIN. ATIVAN PRN SEIZURE AND AGITATION, PROLONGED QT CHECK ELECTROLYTES AND CORRECT CA, MG, K. IF TACHYCARDIA THEN BOLUS. UA, UDS, TYLENOL, ASPIRIN, ALCOHOL, THEN RECHECK TYLENOL IN 4 HRS; IF TYLENOL >150 THEN ADMIN MUCOMYST IV OR PO, THEN RECHECK TYLENOL AT 6HRS POST INGESTION THEN ADMIN MUCOMYST IF TYLENOL >106. OBSERVE FOR TOTAL [address] MCCALL MADE AWARE.
[2019-01-19 22:09] LABS: ACETAMINOPHEN 23.4 UG/ML (10-30); ALANINE AMINOTRANSFERASE 125 U/L (12-78); ALBUMIN 3.6 G/DL (3.4-5.0); ALKALINE PHOSPHATASE 54 IU/L (46-116); ANION GAP 8 (8-16); ASPARTATE AMINO TRANSFERASE 55 U/L (10-37); BILIRUBIN,TOTAL 0.3 MG/DL (0.1-1.0); BLOOD UREA NITROGEN 20 MG/DL (7-18); BUN/CREATININE RATIO 21.5 (6.6-38.0); CHLORIDE 102 MMOL/L (99-107); CREATININE 0.93 MG/DL (0.40-0.90); ETHANOL < 0.010 GM/DL (0.0-0.010); GLUCOSE 145 MG/DL (70-104); PHOSPHORUS 3.5 MG/DL (2.3-4.5); POTASSIUM 3.1 MMOL/L (3.5-5.1); SODIUM 137 MMOL/L (135-145); TOTAL CARBON DIOXIDE 26.9 MMOL/L (24-32); TOTAL PROTEIN 7.2 G/DL (6.4-8.2); eGFR 62 ML/MIN
[2019-01-19] MEDS ORDERED: normal saline 1000ML IV soln IVB ONE (22:10)
[2019-01-19 22:47] LABS: URINE AMPHETAMINE SCREEN NEGATIVE (Neg); URINE BARBITUATE SCREEN NEGATIVE (Neg); URINE BENZODIAZEPINES SCREEN NEGATIVE (Neg); URINE CANNABINOID SCREEN NEGATIVE (Neg); URINE COCAINE SCREEN NEGATIVE (Neg); URINE METHADONE SCREEN NEGATIVE (Neg); URINE OPIATE SCREEN POSITIVE (Neg); URINE PHENCYCLIDINE SCREEN NEGATIVE (Neg)
--- NOTE | 2019-01-19 23:11 | NUR ---
PER PT TOOK 4 OF SEROQUEL AND 4 OF AMBIEN, PT NOT FEELING SLEEPY AT ALL.
--- NOTE | 2019-01-20 00:17 | NUR ---
PT CONTINUES TO PULL AT HER IV LINES, PT HAS PULLED 2 IVS OUT. MD MCCALL AWARE, NO NEED TO CONTINUE PLACING IV LINES AT THIS TIME. WE WILL CONTINUE TO MONITOR BUT AT THIS TIME PT REMAINS SYMPTOM FREE.
--- NOTE | 2019-01-20 02:35 | NUR ---
Rcvictoria pt awake ,calm and cooperative from main er per w/c.pt said she wants to sleep now.
--- NOTE | 2019-01-20 04:00 | NUR ---
up to the bathroom.
--- NOTE | 2019-01-20 05:32 | NUR ---
asleep in bed,breathing even and unlaboured.
--- NOTE | 2019-01-20 07:03 | NUR ---
Received report from John RN
--- NOTE | 2019-01-20 07:03 | NUR ---
Patient is in bed sleeping
--- NOTE | 2019-01-20 08:54 | NUR ---
Poison controll called and wanted to know labs and current vital signs.
--- NOTE | 2019-01-20 09:30 | NUR ---
PATIENT WAS SLEEPING RECEIVED A PHONE CALL WITH POISON CONTROL. ABOUT LAB WORK AND IF THE PATIENT ACTUALLY INJESTED TYLENOL.
[2019-01-20] MEDS ORDERED: CITALOpram 10mg tablet PO SCH (10:29)
[2019-01-20] MEDS ORDERED: levoTHYROXINE 25mcg tablet PO SCH (10:29)
--- NOTE | 2019-01-20 11:30 | NUR ---
PATIENT IS AT BEDSIDE IN NO PAIN JUST WATCHING EVERYONE SHE STATED
[2019-01-20] MEDS: metoprolol tartrate 25mg tablet PO SCH ×2 (11:34→19:28)
[2019-01-20] MEDS ORDERED: potassium Cl 40MEQ/NS 500ml 500 ML IV PRN ×2 (12:20)
[2019-01-20] MEDS ORDERED: magnesium Cl slow-release 64mg tablet PO PRN (12:20)
[2019-01-20] MEDS ORDERED: potassium Cl 20 mEq SR tablet PO PRN ×2 (12:20)
--- NOTE | 2019-01-20 13:00 | NUR ---
PATIENT IS SLEEPING. ATE LUNCH
--- NOTE | 2019-01-20 15:00 | NUR ---
PATIENT IS RESTING
[2019-01-20 17:42] VITALS: BP_DIAS 79
--- NOTE | 2019-01-20 17:54 | NUR ---
PATIENT IS GETTING VERY AGITATED. STATING SHE WANTS PAIN MEDICATION. SHE IS SAYING SHE TAKE 1000 MG OF NORCO AND SHE WANTS THEM NOW!
[2019-01-20 19:28] VITALS: BP_SYST 128
--- NOTE | 2019-01-20 19:44 | NUR ---
Patient resting comfortably, talking and laughing to herself.
[2019-01-20] MEDS ORDERED: LORazepam 2 mg/ml vial IM ONE (20:50)
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
--- NOTE | 2019-01-20 21:50 | NUR ---
Patient still somewhat agitated, stil yelling out her disorganized thoughts. Advised her to maintain silence as people are trying to sleep. Pt verbalized udnerstanding. Will continue to monitor.
--- NOTE | 2019-01-20 21:59 | NUR ---
Rashaad, PCT here to [facility].
[2019-01-22] MEDS ORDERED: CITA-124 PO (12:55)
== END 2019-01-20 22:10 ==
LOC: ER 21:22
DX: T43.591A Poisoning by other antipsychotics and neuroleptics, accidental (unintentional), initial encounter (principal); T39.1X1A Poisoning by 4-Aminophenol derivatives, accidental (unintentional), initial encounter; T45.0X1A Poisoning by antiallergic and antiemetic drugs, accidental (unintentional), initial encounter; E03.9 Hypothyroidism, unspecified; Z98.890 Other specified postprocedural states; Z60.2 Problems related to living alone; Z59.0 Homelessness; Z88.0 Allergy status to penicillin; Z88.2 Allergy status to sulfonamides; Z91.040 Latex allergy status; Z88.1 Allergy status to other antibiotic agents; Z79.899 Other long term (current) drug therapy; Z79.82 Long term (current) use of aspirin; Y92.89 Other specified places as the place of occurrence of the external cause
CPT/HCPCS: 36415; 80053; 80305; 80320; 80329; 83735; 84100; 85025; 93005; 96365; 96366; 96372; 99285; J2060; J3475

== ENCOUNTER 2019-01-20 20:40 | Inpatient (IN) | payer MEDICAID | END 2019-01-22 15:30 | disposition still patient (30) | LOC: ADULT MH 20:40 | DX: F32.9 Major depressive disorder, single episode, unspecified (principal); F60.3 Borderline personality disorder ==

== ENCOUNTER 2019-01-23 20:00 | Emergency (ER) | payer MEDICAID ==
[~2019-01-23] VITALS: Ht 165.1 cm; Wt 100.0 kg
[~2019-01-23 20:00] MED LIST changes: +CITA-124 PO; -CITA10TA9 PO; -LEVO500T2 PO; -QUET50TA PO
[2019-01-23] MEDS ORDERED: ibuprofen tablet 400 MG TABLET PO ONE (20:55)
[2019-01-23 20:58] LABS: BASOPHILS # (AUTO) 0.1 X10'3 (0-0.2); BASOPHILS % (AUTO) 0.7 % (0-1); EOSINOPHILS % (AUTO) 0 % (0-6); HEMOGLOBIN 13.7 g/dl (12.0-16.0); LYMPHOCYTES # (AUTO) 2.3 X10'3 (1.1-4.8); MEAN CORPUSCULAR HEMOGLOBIN 30.7 PG (27.0-31.0); MEAN CORPUSCULAR HGB CONC 33.3 g/dL (33.0-36.5); MEAN CORPUSCULAR VOLUME 92.2 FL (78-98); MEAN PLATELET VOLUME 8.1 FL (7.4-10.4); MONOCYTES # (AUTO) 0.8 X10'3 (0-0.9); MONOCYTES % (AUTO) 7.1 % (2-12); NEUTROPHILS # (AUTO) 8.8 X10'3 (1.8-7.7); NEUTROPHILS % (AUTO) 73.2 % (42-75); PLATELET COUNT 319 X10'3 (140-440); RED BLOOD COUNT 4.45 X10'6 (4.20-5.60); RED CELL DISTRIBUTION WIDTH 12.9 % (11.5-14.5)
[2019-01-23 20:59] LABS: ALANINE AMINOTRANSFERASE 110 U/L (12-78); ALBUMIN 4.4 G/DL (3.4-5.0); ALBUMIN/GLOBULIN RATIO 1.3 (1.1-1.5); ALKALINE PHOSPHATASE 55 IU/L (46-116); ANION GAP 15 (8-16); ASPARTATE AMINO TRANSFERASE 61 U/L (10-37); BILIRUBIN,TOTAL 0.8 MG/DL (0.1-1.0); BLOOD UREA NITROGEN 37 MG/DL (7-18); BUN/CREATININE RATIO 22.2 (6.6-38.0); CHLORIDE 107 MMOL/L (99-107); CREATININE 1.67 MG/DL (0.40-0.90); GLUCOSE 101 MG/DL (70-104); POTASSIUM 3.6 MMOL/L (3.5-5.1); SODIUM 144 MMOL/L (135-145); TOTAL CARBON DIOXIDE 22.4 MMOL/L (24-32); TOTAL PROTEIN 7.9 G/DL (6.4-8.2); eGFR 32 ML/MIN
--- NOTE | 2019-01-23 21:00 | NUR ---
Pt resting comfortably in bed NAD
[2019-01-23 21:07] LABS: ACETAMINOPHEN 32.7 UG/ML (10-30); ETHANOL < 0.010 GM/DL (0.0-0.010)
[2019-01-23] MEDS ORDERED: normal saline 1000ML IV soln IVB ONE (21:20)
--- NOTE | 2019-01-23 22:00 | NUR ---
Pt resting comfortably in bed NAD
--- NOTE | 2019-01-23 23:00 | NUR ---
pt asking for juice and gave 2 cranberry juice boxes and refilled water pitcher. Pt sitting in bed and resting comfortably.
--- NOTE | 2019-01-24 00:01 | NUR ---
pt asking for juice and gave 2 apple juice boxes and refilled water pitcher. Pt sitting in bed and resting comfortably.
--- NOTE | 2019-01-24 01:00 | NUR ---
pt is asleep and NAD.
--- NOTE | 2019-01-24 02:00 | NUR ---
pt is asleep and NAD.
--- NOTE | 2019-01-24 02:30 | NUR ---
Pt needed to urinate and was informed of needing a urine sample. Pt stated she will need a hat in the toilet then. Walked pt to bathroom and placed hat in toilet, pt urinated and then threw the urine in the hat away. Informed pt that next need to urinate we will need a sample, pt verbalized understanding.
--- NOTE | 2019-01-24 03:45 | NUR ---
Rounded on pt and found a commode filled with feces and a trash bag that pt had placed there. Gave pt a wipe bath and changed her green scrubs and socks. Pt now in bed with warm blankets and sleeping with NAD.
--- NOTE | 2019-01-24 04:39 | NUR ---
pt sleeping NAD
--- NOTE | 2019-01-24 07:04 | NUR ---
Patient sleeping; no acute distress
[2019-01-24 08:20] LABS: CLARITY,URINE CLEAR (Clear); COLOR,URINE YELLOW (Yellow); GLUCOSE, URINE NEGATIVE (Neg); KETONES,URINE 15 mg/dl (Neg); LEUKOCYTE ESTERASE ,URINE NEGATIVE (Neg); NITRITES, URINE NEGATIVE (Neg); OCCULT BLOOD,URINE MODERATE (Neg); PROTEIN,URINE NEGATIVE (Neg); UROBILINOGEN,URINE 0.2 E.U/dL (0.2-1.0)
[2019-01-24 08:24] LABS: UA COLLECTION TYPE NON-SPECIFIED
[2019-01-24 08:26] LABS: BACTERIA,URINE FEW /HPF (Neg); MUCUS STRANDS FEW /LPF (Neg); RBC,URINE 0-2 /HPF (0-2); SQUAMOUS EPITHELIAL CELL,UR FEW /LPF (FEW); WBC,URINE 0-4 /HPF (0-4)
[2019-01-24 08:34] LABS: URINE AMPHETAMINE SCREEN NEGATIVE (Neg); URINE BARBITUATE SCREEN NEGATIVE (Neg); URINE BENZODIAZEPINES SCREEN NEGATIVE (Neg); URINE CANNABINOID SCREEN NEGATIVE (Neg); URINE COCAINE SCREEN NEGATIVE (Neg); URINE METHADONE SCREEN NEGATIVE (Neg); URINE OPIATE SCREEN NEGATIVE (Neg); URINE PHENCYCLIDINE SCREEN NEGATIVE (Neg)
--- NOTE | 2019-01-24 09:20 | NUR ---
PAGED [facility] TO INTERVIEW PT
--- NOTE | 2019-01-24 12:24 | NUR ---
ASSUMED CARE OF PT FROM MIKAELA COREA
--- NOTE | 2019-01-24 12:35 | NUR ---
pt moved to overflow
--- NOTE | 2019-01-24 12:43 | NUR ---
Pt is lying in bed on her back. She is awake. She is no distress. She came over form the ER with Melissa on a [id number]. She knows her name and that she is at [facility] and she believes it is May 2019.
--- NOTE | 2019-01-24 13:46 | NUR ---
Pt ate half of lunch and is in a good mood. She is smiling, calm, quiet and resting on her back.
--- NOTE | 2019-01-24 15:13 | NUR ---
Pt continues to rest in her bed in no distress. She was able to get up and ambulate to the bathroom on her own.
--- NOTE | 2019-01-24 15:31 | NUR ---
Up to the restroom. Pt ambulates on her own
--- NOTE | 2019-01-24 16:47 | NUR ---
Pt laying in bed awake in no apparent distress
--- NOTE | 2019-01-24 17:43 | NUR ---
Pt sitting up and eating breakfast
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
--- NOTE | 2019-01-24 19:43 | NUR ---
Elopement band #35 place on pt's left wrist. Explained the necessity of the band.
[2019-01-24] MEDS: metoprolol tartrate 25mg tablet PO SCH (20:25)
--- NOTE | 2019-01-24 21:57 | NUR ---
The patient appears to be sleeping
--- NOTE | 2019-01-24 23:18 | NUR ---
The patient appears to be asleep.
[2019-01-24] MEDS ORDERED: acetaminophen 325mg tablet PO ONE (23:50)
--- NOTE | 2019-01-25 02:00 | NUR ---
The patient is awake and talking and singing to herself.
--- NOTE | 2019-01-25 04:57 | NUR ---
The patient appears to be asleep at this time.
[2019-01-25] MEDS: citalopram 20mg tablet PO SCH (07:36)
[2019-01-25] MEDS: levoTHYROXINE 25mcg tablet PO SCH (07:37)
[2019-01-25] MEDS: metoprolol tartrate 25mg tablet PO SCH ×2 (07:37→20:22)
--- NOTE | 2019-01-25 10:10 | NUR ---
Patient is quietly sitting up in bed, observing staff working in our environment.
--- NOTE | 2019-01-25 12:02 | NUR ---
Patient is asking when lunch will be here. I let her know that lunch is usually delivered around 1300.
[2019-01-25] MEDS: acetaminophen 325mg tablet PO PRN ×2 (13:22→20:21)
--- NOTE | 2019-01-25 14:05 | NUR ---
Patient is laughing at the conversation she overheard between myself and YISEL Cazares. Her response to our conversation was comical and appropriate.
[2019-01-25] MEDS: NICOTINE POLACRILEX 4 MG LOZENGE BC PRN (14:49)
--- NOTE | 2019-01-25 16:00 | NUR ---
Patient is currently awake, sitting up in bed. She is content and unbothered.
--- NOTE | 2019-01-25 16:40 | NUR ---
Patient asked to speak with nurse at this time. Overheard another female patient crying. Stated: "[place] is a friend of my family. He lives in [place] with his daughter, where he has a mormon. I'm sure he could say or do something to help her situation. He's an actual saint in the [employer]ism [employer]. A real person. If he saw me he would say, Sanjiv Naqvi. Have a great day. Be kind to others." Presents as delusional at this time. Talking to self while in bed. Asked for the small empty medicine cups on the KALEN. Talking to the cups. Moving them around her table. States she has never had a psychiatric diagnosis."I'm good to go."
--- NOTE | 2019-01-25 19:40 | NUR ---
Pt wandering about the unit after using the restroom. Pt trying to open the divider between unit and hallway and asking to go outside. Redirected with some effort. Pt stated she wanted to go outside, "just for a little while. Only 30 min." Then pt stated she only wanted see what was down the hallway. Pt refused to return to bed unless she was allowed to peek down the hallway for 30 sec. Pt then returned to bed.
--- NOTE | 2019-01-25 20:30 | NUR ---
Medications administered to pt. Pt cooperative. Pt needs met.
[2019-01-26] MEDS: acetaminophen 325mg tablet PO PRN ×4 (05:07→23:19)
--- NOTE | 2019-01-26 05:58 | NUR ---
Pt complaint of back pain 08/25. Pt given Tylenol for pain as ordered. Pt given warm blanket for her back. Pt appears to be resting quietly at this time.
[2019-01-26] MEDS: citalopram 20mg tablet PO SCH (08:09)
[2019-01-26] MEDS: levoTHYROXINE 25mcg tablet PO SCH (08:09)
[2019-01-26] MEDS: metoprolol tartrate 25mg tablet PO SCH ×2 (08:09→19:38)
--- NOTE | 2019-01-26 09:11 | NUR ---
Pt. woke up for breakfast and took am meds. Denies c/o/
--- NOTE | 2019-01-26 09:49 | NUR ---
Pt. lying supine in bed with eyes closed and even respirations.
[2019-01-26] MEDS: NICOTINE POLACRILEX 4 MG LOZENGE BC PRN ×4 (11:09→23:19)
--- NOTE | 2019-01-26 12:08 | NUR ---
Patient attempted to walk off the unit. She was directed back to her bed without incident.
--- NOTE | 2019-01-26 19:00 | NUR ---
rcd pt awake and calm in bed.needs attended.
--- NOTE | 2019-01-26 21:00 | NUR ---
awake in bed. pt said she's bored,offerred magazines to read.
--- NOTE | 2019-01-26 21:47 | NUR ---
pt asking for her lozenges,told her its not time yet and said can i have something to eat instead.had turkey sandwich and orange juice.
--- NOTE | 2019-01-26 23:00 | NUR ---
pt asleep in bed.
--- NOTE | 2019-01-27 00:50 | NUR ---
pt awake in bed.
--- NOTE | 2019-01-27 02:34 | NUR ---
pt attempted to walk off,got her attention and cooperatively back in her bed.
--- NOTE | 2019-01-27 04:35 | NUR ---
pt asleep in bed,breathing even and unlaboured.
--- NOTE | 2019-01-27 08:01 | NUR ---
DISCHARGE PLANNING: ERIBERTO contacted [facility], speaking w/ Lotus Wang at [phone], to discuss pt needs upon most recent discharge from [facility]. Lotus Wang informed pt has an appointment w/ APS on 01/28/2019, at 10:00, for safety planning, investigation, and referral to service needs. APS will complete a MoCA during needs assessment if appropriate and is planning to refer pt to [facility] services and [facility]. ROBE TamezW
[2019-01-27] MEDS: metoprolol tartrate 25mg tablet PO SCH ×2 (08:05→20:15)
[2019-01-27] MEDS: citalopram 20mg tablet PO SCH (08:05)
[2019-01-27] MEDS: levoTHYROXINE 25mcg tablet PO SCH (08:05)
[2019-01-27] MEDS: acetaminophen 325mg tablet PO PRN ×3 (08:15→22:58)
--- NOTE | 2019-01-27 09:00 | NUR ---
Pt woke up to eat breakfast. Took all AM meds.
--- NOTE | 2019-01-27 11:20 | NUR ---
Pt in bed sleeping. Has been calm and cooperative this AM.
[2019-01-27] MEDS: NICOTINE POLACRILEX 4 MG LOZENGE BC PRN ×3 (12:35→18:35)
--- NOTE | 2019-01-27 14:38 | NUR ---
pt asked to call brother. pt given phone and number to make call.
--- NOTE | 2019-01-27 16:02 | NUR ---
Patient awake and reclining in her bed. No distress observed. Continue to monitor.
--- NOTE | 2019-01-27 20:00 | NUR ---
The patient is resting on her bed. She is friendly on approach. She is disorganized. She has almost no ability to formulate a realistic plan for self care. SHe is not on a hold. She is no requesting to be discharged. She is not attending to her personal hygiene. She stated that her family has not been coming into see her and they haven't been calling her. When asked what her discharge plan was she stated that "I plan to leave tomorrow and get my house unlocked some how"
--- NOTE | 2019-01-27 23:38 | NUR ---
The patient appears to be asleep at this time
[2019-01-28] MEDS: NICOTINE POLACRILEX 4 MG LOZENGE BC PRN ×5 (00:28→19:12)
--- NOTE | 2019-01-28 03:07 | NUR ---
The patient is awake off and on but mostly has been awake. She is polite.
--- NOTE | 2019-01-28 05:12 | NUR ---
The patient has slept poorly and has frequently awake.
[2019-01-28] MEDS: citalopram 20mg tablet PO SCH (08:13)
[2019-01-28] MEDS: levoTHYROXINE 25mcg tablet PO SCH (08:13)
[2019-01-28] MEDS: metoprolol tartrate 25mg tablet PO SCH ×2 (08:14→19:13)
[2019-01-28] MEDS: acetaminophen 325mg tablet PO PRN ×3 (08:18→22:57)
--- NOTE | 2019-01-28 09:22 | NUR ---
Spoke with Alexander, requested him to pass on message that patient has an appointment with APS at 10 am today that our social media marketing specialist relayed several days ago. This appointment will help patient get services with APS, they are scheduled to meet her at her house.
--- NOTE | 2019-01-28 22:43 | NUR ---
PT CALLED FOR NURSE AND REQUESTS "KLONAPIN OR SOMETHING" TO HELP HER WITH ANXIETY.
--- NOTE | 2019-01-28 22:49 | NUR ---
DR. ANDERSON NOTIFIED THAT PT REQUESTS CLONAZAPAM. EXTERNAL MED HX SHOWS A RECENT PERSCRIPTION FOR CLONAZAPAM 1 MG DAILY PRN AND THIS IS NOT ON HER MED REC. VERBAL RECEIVED TO ORDER THIS.
[2019-01-28] MEDS: clonazePAM 1mg tablet PO PRN (22:57)
--- NOTE | 2019-01-28 23:08 | NUR ---
GIVEN CLONAZAPAM 1 MG PO AND WARM BLANKET. PT SPILLED WATER ON HERSELF AND BEDDING. BEDDING CHANGED AND NEW SCRUB TOP PROVIDED. PT THANKFUL FOR ASSISTANCE AND FOR GETTING THE ORDER FOR CLONAZAPAM
--- NOTE | 2019-01-29 02:42 | NUR ---
pt sleeping, lying on her back with blakets covering to shouders, rr 14 and unlabored. sitter within view of pt aat.
--- NOTE | 2019-01-29 06:30 | NUR ---
Asleep upon change of shift observation. Undisturbed at this time.
--- NOTE | 2019-01-29 08:30 | NUR ---
Served breakfast. Ate 100% of her meal. All medications administered as ordered.
[2019-01-29] MEDS: citalopram 20mg tablet PO SCH (08:44)
[2019-01-29] MEDS: metoprolol tartrate 25mg tablet PO SCH ×2 (08:44→20:19)
[2019-01-29] MEDS: levoTHYROXINE 25mcg tablet PO SCH (08:45)
--- NOTE | 2019-01-29 10:00 | NUR ---
Patient is quietly sitting up in bed, observing staff working in our environment.
[2019-01-29] MEDS: acetaminophen 325mg tablet PO PRN ×2 (12:31→18:34)
--- NOTE | 2019-01-29 13:00 | NUR ---
Served lunch. Ate 100% of her meal. Asking for the phone. Called her brother. Spoke with her brother for 20 minutes.
[2019-01-29] MEDS: NICOTINE POLACRILEX 4 MG LOZENGE BC PRN ×4 (13:47→23:18)
--- NOTE | 2019-01-29 17:38 | NUR ---
Spent the day in bed except to get up to use the bathroom, ask for a nicotine lozenge or ask to use the phone. Pleasant and polite with staff throughout the day.
--- NOTE | 2019-01-29 19:36 | NUR ---
The patient is pleasant and cooperative. She stated she did not know when she was going to bet out of the ER and stated that she had called her brother but the brother told her that he hurt his back and was unable to help her at this time. She doesn't seem to be aware that the manager social responsibility staff are looking for placemnt for her.
[2019-01-29] MEDS: traZODone 50mg tablet PO SCH (20:18)
--- NOTE | 2019-01-29 20:38 | NUR ---
The patient appears to be asleep at this time. Prior to her HS medications she was unable to indepently call her family and required assistance
--- NOTE | 2019-01-29 23:08 | NUR ---
The patient is resting on her bed
--- NOTE | 2019-01-30 01:07 | NUR ---
The patient appears to be asleep
--- NOTE | 2019-01-30 02:54 | NUR ---
The patient appears to be asleep at this time.
--- NOTE | 2019-01-30 04:46 | NUR ---
The patient appears to be sleeping
--- NOTE | 2019-01-30 07:12 | NUR ---
Received Pt sleeping in bed comfortably with normal respirations.
[2019-01-30] MEDS: citalopram 20mg tablet PO SCH (08:21)
[2019-01-30] MEDS: acetaminophen 325mg tablet PO PRN ×2 (08:21→23:30)
[2019-01-30] MEDS: levoTHYROXINE 25mcg tablet PO SCH (08:21)
[2019-01-30] MEDS: metoprolol tartrate 25mg tablet PO SCH ×2 (08:21→20:20)
--- NOTE | 2019-01-30 10:25 | NUR ---
Pt awoke and ate breakfast. Asked for tylenol r/t back pain which she was given along with 0800 meds. Pt thankful and cooperative. Attempted to use phone to call relatives. Currently awake and resting in bed w/o distress.
[2019-01-30] MEDS: clonazePAM 1mg tablet PO PRN ×2 (15:13→23:30)
--- NOTE | 2019-01-30 15:50 | NUR ---
Pt resting in bed after receiving klonopin for increased anxiety. Hospital SW paged earlier and deferred to [facility] for placement issues and discussed the needed documents for [facility] placement.
[2019-01-30] MEDS: traZODone 50mg tablet PO SCH (20:19)
[2019-01-30] MEDS: NICOTINE POLACRILEX 4 MG LOZENGE BC PRN (20:20)
--- NOTE | 2019-01-30 23:15 | NUR ---
Pt exhibiting increased anxiety and restlessness d/t heightened dc/transfer activity of unit. Will monitor and provide PRN medication as needed.
--- NOTE | 2019-01-31 01:36 | NUR ---
Pt had an incontient episode. Bed linen changed and fresh scrubs provided. Pt placed in bed with warm blankets for comfort.
--- NOTE | 2019-01-31 06:44 | NUR ---
pt appears to be sleeping comfortably. no signs of distress
[2019-01-31] MEDS: citalopram 20mg tablet PO SCH (08:17)
[2019-01-31] MEDS: levoTHYROXINE 25mcg tablet PO SCH (08:17)
[2019-01-31] MEDS: metoprolol tartrate 25mg tablet PO SCH ×2 (08:17→19:41)
--- NOTE | 2019-01-31 08:44 | NUR ---
Pt woke up to have breakfast. pt is calm and cooperative. denies any needs at this time
--- NOTE | 2019-01-31 09:30 | NUR ---
pt resting comfortable. no signs of distress.
--- NOTE | 2019-01-31 11:17 | NUR ---
pt is resting comfortably. no signs of distress
--- NOTE | 2019-01-31 12:33 | NUR ---
pt sitting at the edge of bed. no needs at this time
--- NOTE | 2019-01-31 12:50 | NUR ---
Patient eating lunch. No distress observed. Continue to monitor.
[2019-01-31] MEDS: acetaminophen 325mg tablet PO PRN ×2 (13:03→19:41)
--- NOTE | 2019-01-31 15:53 | NUR ---
PT RESTING COMFORTABLE AT THIS TIME. NO SIGNS OF DISTRESS AT THIS TIME
[2019-01-31] MEDS: NICOTINE POLACRILEX 4 MG LOZENGE BC PRN (16:35)
--- NOTE | 2019-01-31 16:44 | NUR ---
PT UP TO NURSES STATION REQUESTING WATER, NICOTINE LOUNGES, AND WARM BLANKETS. ALL NEEDS MEET AT THIS TIME.
--- NOTE | 2019-01-31 17:40 | NUR ---
DR RAMOS AT BEDSIDE
[2019-01-31] MEDS: traZODone 50mg tablet PO SCH (19:40)
--- NOTE | 2019-01-31 20:00 | NUR ---
The patient has been at her bed and making telephone calls. Occassionally comes up to the station to visit with staff. She has been cooperative and friendly.
--- NOTE | 2019-01-31 22:10 | NUR ---
The patient appears to be asleep at this time
--- NOTE | 2019-02-01 00:05 | NUR ---
The patient was up to the bathroom and asked for a new pair of scrubs 2nd to some incontinence on her way to the bathroom.
--- NOTE | 2019-02-01 00:12 | NUR ---
The patient changed into her scrubs but she put both legs in to one leg of the pants and lost her balance and fell over on to her right side. She reports pain in her right elbow and right hip. Vital signs 113/82 HR 82, 95 on RA, Temp 97.8 Dr. Conner made aware.
--- NOTE | 2019-02-01 02:37 | NUR ---
The patient appears to be asleep
--- NOTE | 2019-02-01 05:12 | NUR ---
The patient appears to be asleep
--- NOTE | 2019-02-01 07:07 | NUR ---
Patient resting comfortably at this time. In no apparent distress.
[2019-02-01] MEDS: citalopram 20mg tablet PO SCH (08:08)
[2019-02-01] MEDS: metoprolol tartrate 25mg tablet PO SCH ×2 (08:09→20:39)
[2019-02-01] MEDS: levoTHYROXINE 25mcg tablet PO SCH (08:09)
[2019-02-01] MEDS: acetaminophen 325mg tablet PO PRN (08:13)
--- NOTE | 2019-02-01 09:56 | NUR ---
Patient ate breakfast and went back to sleep.
--- NOTE | 2019-02-01 11:18 | NUR ---
Patient appears to be sleeping at this time
[2019-02-01] MEDS: NICOTINE POLACRILEX 4 MG LOZENGE BC PRN ×2 (12:51→20:44)
--- NOTE | 2019-02-01 12:53 | NUR ---
Patient came to nurses station asking to use the phone. Patient made phone call and then asked for more water and nicotine lozenges. All needs met at this time. Patient back in bed resting comfortably. Will conitnue to monitor patient.
--- NOTE | 2019-02-01 14:00 | NUR ---
PT MOVED FROM OF23 TO ER14
--- NOTE | 2019-02-01 16:29 | NUR ---
PT VISITOR NOTIFIED STAFF THAT PT LEFT HER ROOM AND WENT TOWARD THE BATHROOM NEXT TO XRAY. PT ATTEMPTED TO ELOPE FROM ER14, SECURITY WAS CALLED AND PT WAS FOUNDAT END OF BROOKS OUTSIDE OF FAST TRACK. PT WAS RETURNED TO ER14. PT'S FRIEND REMAINED IN THE ROOM AT TIME OF ELOPEMENT AND IS WITH PT CURRENTLY.
[2019-02-01] MEDS: traZODone 50mg tablet PO SCH (20:36)
--- NOTE | 2019-02-02 00:31 | NUR ---
Pt up to bathroom, had an incontient episode. Fresh scrub pants given. Assisted pt with putting pants on.
--- NOTE | 2019-02-02 01:46 | NUR ---
Pt appears to be sleeping at this time. No s/s of distress noted at this time. Will continue to monitor.
--- NOTE | 2019-02-02 07:29 | NUR ---
SPOKE WITH MD BRAVO ABOUT THE PT'S LAB WORK (WBC, LIVER AND KIDNEY FUNCTIONS) AND ASKED IF HE WANTS THE LAB WORK RETESTED. HE SAID NO. PT IN NO OBVIOUS DISTRESS. BREATHING, WALKING AND TALKING WELL. NO SIGNS OF INFECTION FROM EXAM.
[2019-02-02] MEDS: citalopram 20mg tablet PO SCH (07:58)
[2019-02-02] MEDS: levoTHYROXINE 25mcg tablet PO SCH (07:58)
[2019-02-02] MEDS: acetaminophen 325mg tablet PO PRN ×3 (07:58→23:58)
[2019-02-02] MEDS: metoprolol tartrate 25mg tablet PO SCH ×2 (07:59→20:27)
--- NOTE | 2019-02-02 08:59 | NUR ---
PT SIGNED PAPERWORK TO OBTAIN A CAREGIVER.
[2019-02-02] MEDS: NICOTINE POLACRILEX 4 MG LOZENGE BC PRN ×2 (12:12→16:32)
--- NOTE | 2019-02-02 16:36 | NUR ---
Stephanie, friend here to talk and visit with pt.
--- NOTE | 2019-02-02 17:09 | NUR ---
pt's father is here sitting and talking with pt at bedside.
--- NOTE | 2019-02-02 18:50 | NUR ---
The patient is up and socializing with others. She is very pleasant. SHe is taking redirections. She is not intrussive. She is eating well.
[2019-02-02] MEDS: NICOTINE POLACRILEX 2 MG LOZENGE BC PRN (20:27)
[2019-02-02] MEDS: traZODone 50mg tablet PO SCH (20:27)
--- NOTE | 2019-02-02 21:03 | NUR ---
THe patient is awake and reading a book.
--- NOTE | 2019-02-02 22:43 | NUR ---
The patient is resting on her bed.
--- NOTE | 2019-02-03 01:34 | NUR ---
The patient appears to be sleeping
--- NOTE | 2019-02-03 03:10 | NUR ---
The patient appears to be asleep
--- NOTE | 2019-02-03 04:40 | NUR ---
The patient appears to be asleep
[2019-02-03] MEDS: citalopram 20mg tablet PO SCH (08:19)
[2019-02-03] MEDS: levoTHYROXINE 25mcg tablet PO SCH (08:19)
[2019-02-03] MEDS: metoprolol tartrate 25mg tablet PO SCH ×2 (08:26→19:51)
--- NOTE | 2019-02-03 15:46 | NUR ---
dionisio called adult protective services and the application has been completed for ISS and they are waiting for raad's pcp to sign off on it
[2019-02-03] MEDS: NICOTINE POLACRILEX 2 MG LOZENGE BC PRN (16:19)
[2019-02-03] MEDS: acetaminophen 325mg tablet PO PRN (16:27)
--- NOTE | 2019-02-03 18:37 | NUR ---
PT CURRENTY NOT ON INVOLUNTARY HOLD STATUS, PT IS AWATING DISCHARGE PENDING SS APPROVAL AND SAFE DISCHARGE PLANNING.
[2019-02-03] MEDS: traZODone 50mg tablet PO SCH (19:57)
[2019-02-03] MEDS: clonazePAM 1mg tablet PO PRN (20:46)
--- NOTE | 2019-02-04 00:53 | NUR ---
PT UP TO USE THE BATHROOM AND ASKED FOR A CHANGE OF SCRUBS. PT APPEARS IN NO DISTRESSS.
--- NOTE | 2019-02-04 02:18 | NUR ---
PT CONTINUES TO PERIODICALLY GET UP THROUGHOUT THE NIGHT, APPEARS IN NO DISTRESS, SHE IS CURRENTLY SLEEPING.
--- NOTE | 2019-02-04 04:14 | NUR ---
PT UP TO BATHROOM AND GIVEN CHANGE OF SCRUBS.
[2019-02-04 05:39] VITALS: BP_DIAS 72
[2019-02-04 08:36] VITALS: BP_SYST 119
[2019-02-04] MEDS: levoTHYROXINE 25mcg tablet PO SCH (08:36)
[2019-02-04] MEDS: metoprolol tartrate 25mg tablet PO SCH (08:36)
[2019-02-04] MEDS: acetaminophen 325mg tablet PO PRN (08:36)
[2019-02-04] MEDS: citalopram 20mg tablet PO SCH (08:36)
--- NOTE | 2019-02-04 09:28 | NUR ---
oly at [facility] called and also [facility] called, raad's application is pending and will approx take 1-2 weeks to assign a case management to
--- NOTE | 2019-02-04 14:09 | NUR ---
GULSHAN FROM [facility] CALLED AND STATES THAT THE PT'S IHSS WORKER IS NANI ALMARAZ AND THE EARLIEST SHE CAN SEE THE PT IS February. GULSHAN STATES SHE WANTS TO KNOW WHEN THE PT IS GOING HOME. INFORMED HER THE PT IS GETTING PHYSICALLY READY TO LEAVE WE SPEAK. SHE SAID SHE IS GOING TO COME AND TALK.
--- NOTE | 2019-02-04 14:22 | NUR ---
SOLAR ENERGY SALES SPECIALIST WITH PATIENT
--- NOTE | 2019-02-04 15:16 | NUR ---
PT DC VIA [facility], SUSHILA FOLLOWED [facility] HOME AND TO MAKE SURE PT GOT INTO HER HOUSE. SUSHILA STATES THE PATIENTS HOUSE WAS CLEAN AND ORGANIZED. HOSP MOTOR ANALYST AWARE THAT THE PT HAS BEEN DC. FAMILY HAS BEEN NOTIFIED THE PT IS GOING HOME. [facility] HAS PT RX AND METOPROLOL WAS CALLED IN.
== END 2019-02-04 15:19 | disposition home or self-care (01) ==
LOC: ER 20:01
DX: F79 Unspecified intellectual disabilities (principal); F32.9 Major depressive disorder, single episode, unspecified; E03.9 Hypothyroidism, unspecified; Z98.890 Other specified postprocedural states; Z60.2 Problems related to living alone; Z56.0 Unemployment, unspecified; Z88.0 Allergy status to penicillin; Z88.2 Allergy status to sulfonamides; Z91.040 Latex allergy status; Z88.1 Allergy status to other antibiotic agents; Z88.8 Allergy status to other drugs, medicaments and biological substances; Z79.82 Long term (current) use of aspirin; Z79.899 Other long term (current) drug therapy
CPT/HCPCS: 36415; 80053; 80305; 80320; 80329; 81001; 84443; 85025; 93005; 99285; J7030

== ENCOUNTER 2019-06-13 14:20 | Inpatient (IN) | payer MEDICAID ==
[~2019-06-13] VITALS: Ht 162.6 cm; Wt 101.0 kg
--- NOTE | 2019-06-13 14:36 | NUR ---
Spoke with case management regarding pt's fall at home and being down x48s hours and requested welfare screening from MD. 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 Case management nurse stated that they could possibly set the patient up for home health visitation if she is discharged.
[2019-06-13] MEDS ORDERED: normal saline 1000ML IV soln IVB ONE (14:40)
[2019-06-13] MEDS ORDERED: morphine 4 MG/ML inj SYRINge IV ONE ×2 (14:40→15:15)
[2019-06-13] MEDS ORDERED: LIDOcaine/epinephrine TOPICAL 5 ML BTL TOP ONE (14:40)
[2019-06-13 15:08] LABS: BASOPHILS % (AUTO) 0.4 % (0-1); EOSINOPHILS % (AUTO) 0.2 % (0-6); HEMATOCRIT 39.8 % (35.0-45.0); HEMOGLOBIN 13.4 g/dl (12.0-16.0); LYMPHOCYTES # (AUTO) 1.1 X10'3 (1.1-4.8); MEAN CORPUSCULAR HEMOGLOBIN 30.1 PG (27.0-31.0); MEAN CORPUSCULAR HGB CONC 33.6 g/dL (33.0-36.5); MEAN CORPUSCULAR VOLUME 89.7 FL (78-98); MEAN PLATELET VOLUME 8.6 FL (7.4-10.4); MONOCYTES # (AUTO) 0.6 X10'3 (0-0.9); MONOCYTES % (AUTO) 6.9 % (2-12); NEUTROPHILS # (AUTO) 6.7 X10'3 (1.8-7.7); NEUTROPHILS % (AUTO) 79.5 % (42-75); PLATELET COUNT 210 X10'3 (140-440); RED BLOOD COUNT 4.44 X10'6 (4.20-5.60); RED CELL DISTRIBUTION WIDTH 12.6 % (11.5-14.5); WHITE BLOOD COUNT 8.4 X10'3 (4.5-11.0)
[2019-06-13] MEDS ORDERED: LIDOcaine 1% W/epiNEPHrine 1:200,000 10ml vial IJ STA (15:08)
[2019-06-13] MEDS ORDERED: dextrose 5%-1/2 normal saline 1,000 ML IV ONE (15:13)
[2019-06-13] MEDS ORDERED: TETanus/Pertussis (Acell)/Diphther VAC/PF (Tdap-Adult) 0.5ml syringe IMVAC ONE (15:15)
[2019-06-13 15:16] LABS: ALANINE AMINOTRANSFERASE 120 U/L (12-78); ALBUMIN 3.6 G/DL (3.4-5.0); ALKALINE PHOSPHATASE 44 IU/L (46-116); ANION GAP 14 (8-16); ASPARTATE AMINO TRANSFERASE 275 U/L (10-37); BILIRUBIN,TOTAL 0.6 MG/DL (0.1-1.0); BLOOD UREA NITROGEN 11 MG/DL (7-18); BUN/CREATININE RATIO 12.1 (6.6-38.0); CALCIUM 8.8 MG/DL (8.5-10.1); CHLORIDE 109 MMOL/L (99-107); CREATININE 0.91 MG/DL (0.40-0.90); GLUCOSE 73 MG/DL (70-104); POTASSIUM 3.4 MMOL/L (3.5-5.1); SODIUM 146 MMOL/L (135-145); TOTAL CARBON DIOXIDE 23.5 MMOL/L (24-32); TOTAL PROTEIN 7.1 G/DL (6.4-8.2); eGFR 64 ML/MIN
[2019-06-13] MEDS ORDERED: ringers solution, lactated 1000ml IV soln IV ONE (15:25)
[2019-06-13 15:36] LABS: CREATINE KINASE 14548 U/L (26-192)
[2019-06-13] MEDS ORDERED: CLON1TAB12 PO (16:59)
[2019-06-13] MEDS ORDERED: BACL10TA2 PO (16:59)
[2019-06-13] MEDS ORDERED: PROC10TA10 PO (16:59)
[2019-06-13] MEDS ORDERED: DOCU-267 PO (16:59)
[2019-06-13] MEDS ORDERED: SOLI10TA7 PO (16:59)
[2019-06-13] MEDS ORDERED: magnesium hydroxide 30ml (MOM) UD suspension PO PRN (17:05)
[2019-06-13] MEDS ORDERED: ondansetron/PF 4mg/2ml inj IV PRN (17:05)
[2019-06-13] MEDS ORDERED: mag hydrox/Alum hydrox/simeth 30ml oral suspension PO PRN (17:05)
[2019-06-13] MEDS ORDERED: acetaminophen 325mg tablet PO PRN (17:05)
[2019-06-13] MEDS ORDERED: morphine 2 MG/ML inj. syringe IV PRN (17:05)
[2019-06-13] MEDS ORDERED: HYDROcodone/acetaminophen 5mg/325mg tablet PO PRN (17:05)
[2019-06-13] MEDS ORDERED: ESOM40CA54 (17:27)
[2019-06-13] MEDS ORDERED: MIRA25TA (17:27)
[2019-06-13] MEDS ORDERED: BUPR1PAT9 (17:27)
[2019-06-13] MEDS ORDERED: docusate sod 100mg capsule PO PRN (17:40)
[2019-06-13] MEDS ORDERED: proCHLORperazine 10mg tablet PO PRN (17:40)
[2019-06-13] MEDS ORDERED: clonazePAM 1mg tablet PO PRN (17:40)
[2019-06-13] MEDS ORDERED: baclofen 10mg tablet PO PRN (17:40)
[2019-06-13 18:44] LABS: CLARITY,URINE CLEAR (Clear); COLOR,URINE YELLOW (Yellow); GLUCOSE, URINE NEGATIVE (Neg); KETONES,URINE >=80 mg/dl (Neg); LEUKOCYTE ESTERASE ,URINE NEGATIVE (Neg); NITRITES, URINE NEGATIVE (Neg); OCCULT BLOOD,URINE TRACE-INTACT (Neg); PH,URINE 5.5 (4.8-8.0); PROTEIN,URINE NEGATIVE (Neg); UROBILINOGEN,URINE 0.2 E.U/dL (0.2-1.0)
[2019-06-13 18:53] LABS: UA COLLECTION TYPE STRAIGHT CATH
[2019-06-13 19:00] LABS: BACTERIA,URINE NONE SEEN /HPF (Neg); HYALINE CASTS 0-3 /LPF (NEGATIVE); MUCUS STRANDS MODERATE /LPF (Neg); RBC,URINE 0-2 /HPF (0-2); SQUAMOUS EPITHELIAL CELL,UR FEW /LPF (FEW); WBC,URINE 0-4 /HPF (0-4)
[2019-06-13] MEDS: normal saline 1000ml 1,000 ML IV SCH (19:11)
--- NOTE | 2019-06-13 20:20 | NUR ---
report called by NAHOMY Solo in ED. awaiting pt arrival to unit
[2019-06-13 20:30] VITALS: BP 90/50
--- NOTE | 2019-06-13 20:30 | NUR ---
arrived to unit, transferred via gurney, skin cehck done. VSS, in no apparent distress, ivf infusing per md order, skin check done. will continue to monitor
[2019-06-13] MEDS: oxybutynin 5mg tablet PO SCH (21:59)
[2019-06-13] MEDS: heparin, porcine 5000 units/ml vial SQ SCH (21:59)
[2019-06-13] MEDS: morphine 2 MG/ML inj. syringe IV PRN (22:32)
[2019-06-14] VITALS: BP 94/47
[2019-06-14] MEDS: normal saline 1000ml 1,000 ML IV SCH ×3 (03:02→23:50)
[2019-06-14] MEDS: morphine 2 MG/ML inj. syringe IV PRN (04:10)
[2019-06-14 06:00] VITALS: BP 95/52
[2019-06-14 06:37] LABS: BASOPHILS # (AUTO) 0.1 X10'3 (0-0.2); BASOPHILS % (AUTO) 0.8 % (0-1); EOSINOPHILS # (AUTO) 0.3 X10'3 (0-0.9); EOSINOPHILS % (AUTO) 3.7 % (0-6); HEMATOCRIT 33.5 % (35.0-45.0); HEMOGLOBIN 11.3 g/dl (12.0-16.0); LYMPHOCYTES # (AUTO) 2.4 X10'3 (1.1-4.8); LYMPHOCYTES % (AUTO) 33.3 % (21-51); MEAN CORPUSCULAR HEMOGLOBIN 30.3 PG (27.0-31.0); MEAN CORPUSCULAR HGB CONC 33.8 g/dL (33.0-36.5); MEAN CORPUSCULAR VOLUME 89.7 FL (78-98); MEAN PLATELET VOLUME 8.7 FL (7.4-10.4); MONOCYTES # (AUTO) 0.5 X10'3 (0-0.9); MONOCYTES % (AUTO) 7.4 % (2-12); NEUTROPHILS % (AUTO) 54.8 % (42-75); PLATELET COUNT 187 X10'3 (140-440); RED BLOOD COUNT 3.74 X10'6 (4.20-5.60); RED CELL DISTRIBUTION WIDTH 12.7 % (11.5-14.5); WHITE BLOOD COUNT 7.3 X10'3 (4.5-11.0)
--- NOTE | 2019-06-14 06:51 | NUR ---
Problems reprioritized. Patient report given, questions answered & plan of care reviewed with NAHOMY Poon.
[2019-06-14 07:06] LABS: ALANINE AMINOTRANSFERASE 105 U/L (12-78); ALBUMIN 2.7 G/DL (3.4-5.0); ALBUMIN/GLOBULIN RATIO 0.9 (1.1-1.5); ALKALINE PHOSPHATASE 35 IU/L (46-116); ANION GAP 11 (8-16); ASPARTATE AMINO TRANSFERASE 214 U/L (10-37); BILIRUBIN,TOTAL 0.4 MG/DL (0.1-1.0); BLOOD UREA NITROGEN 8 MG/DL (7-18); BUN/CREATININE RATIO 9.8 (6.6-38.0); CALCIUM 7.1 MG/DL (8.5-10.1); CHLORIDE 108 MMOL/L (99-107); CREATININE 0.82 MG/DL (0.40-0.90); GLUCOSE 79 MG/DL (70-104); POTASSIUM 3.4 MMOL/L (3.5-5.1); SODIUM 143 MMOL/L (135-145); TOTAL CARBON DIOXIDE 24.3 MMOL/L (24-32); TOTAL PROTEIN 5.6 G/DL (6.4-8.2); eGFR 72 ML/MIN
[2019-06-14 07:27] LABS: CREATINE KINASE 9652 U/L (26-192)
[2019-06-14] MEDS ORDERED: SOLIFENACIN SUCCINATE PO SCH (08:00)
[2019-06-14] MEDS: levoTHYROXINE 25mcg tablet PO SCH (09:34)
[2019-06-14] MEDS: heparin, porcine 5000 units/ml vial SQ SCH ×2 (09:34→19:46)
[2019-06-14] MEDS: citalopram 20mg tablet PO SCH (09:34)
[2019-06-14] MEDS: oxybutynin 5mg tablet PO SCH ×3 (09:34→20:14)
--- NOTE | 2019-06-14 09:42 | NUR ---
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 Addendum: 06/14/19 at 0958 by Ayah Blas RN Amended: Links added.
[2019-06-14] MEDS ORDERED: pneumococcal 23-VAL P-sac vacc 25 mcg/0.5ml vial IMVAC ONE (10:00)
[2019-06-14 11:34] VITALS: BP 90/40
[2019-06-14] MEDS ORDERED: potassium CL 10mEq/100ml bag 100 ML IV PRN ×2 (11:50)
[2019-06-14] MEDS ORDERED: potassium Cl 20 mEq SR tablet PO PRN (11:50)
[2019-06-14] MEDS: potassium Cl 20 mEq SR tablet PO PRN ×3 (12:26→21:41)
[2019-06-14] MEDS: K and/or MAG REPLACEMENT MC SCH (12:29)
[2019-06-14 13:33] VITALS: BP 92/42
--- NOTE | 2019-06-14 13:37 | NUR ---
Md made aware of low blood pressures- systolic in 90s. Pt. requesting pain medication. Confirmed that it was ok to administer with current BP. Order to continue to monitor BP.
--- NOTE | 2019-06-14 14:34 | NUR ---
Resent page: PAGER ID: [phone] MESSAGE: [phone] Vance Isabel Pt. NPO with no fluids- do you want any iv hydration? Ayah [phone]
[2019-06-14 16:02] VITALS: BP 111/56
[2019-06-14] MEDS: HYDROcodone/acetaminophen 10/325mg tab PO PRN ×2 (17:01→21:41)
[2019-06-14 18:15] VITALS: BP 93/57
--- NOTE | 2019-06-14 18:15 | NUR ---
Patient in room GREG 359. I have received report from NAHOMY Poon and had the opportunity to ask questions and assume patient care.
--- NOTE | 2019-06-14 18:24 | NUR ---
Pt. resting in room with rise and fall of chest. No needs at this time. Pt. has recently received PRN pain medication. Problems reprioritized. Patient report given, questions answered & plan of care reviewed with Nicolasa Taylor and Mariam herr RN.
[2019-06-14] MEDS: docusate sod 100mg capsule PO SCH (20:14)
[2019-06-15 00:15] VITALS: BP 88/38
--- NOTE | 2019-06-15 05:15 | NUR ---
Dressing changes: right zuniga covered with abd pad and kurlix. Lacreation with sutures in place. Shoulder abrasion covered with optifoam. Optifoam applied prophylactically to sacral area.
[2019-06-15] MEDS: HYDROcodone/acetaminophen 10/325mg tab PO PRN ×3 (05:37→19:39)
--- NOTE | 2019-06-15 06:28 | NUR ---
Problems reprioritized. Patient report given, questions answered & plan of care reviewed with NAHOMY Ferreira.
[2019-06-15 06:29] LABS: BASOPHILS % (AUTO) 0.7 % (0-1); EOSINOPHILS # (AUTO) 0.2 X10'3 (0-0.9); EOSINOPHILS % (AUTO) 4.3 % (0-6); HEMOGLOBIN 11.1 g/dl (12.0-16.0); LYMPHOCYTES # (AUTO) 2.3 X10'3 (1.1-4.8); LYMPHOCYTES % (AUTO) 46.7 % (21-51); MEAN CORPUSCULAR HEMOGLOBIN 30.1 PG (27.0-31.0); MEAN CORPUSCULAR HGB CONC 33.7 g/dL (33.0-36.5); MEAN CORPUSCULAR VOLUME 89.4 FL (78-98); MEAN PLATELET VOLUME 8.6 FL (7.4-10.4); MONOCYTES # (AUTO) 0.4 X10'3 (0-0.9); MONOCYTES % (AUTO) 8.7 % (2-12); NEUTROPHILS % (AUTO) 39.6 % (42-75); PLATELET COUNT 182 X10'3 (140-440); RED CELL DISTRIBUTION WIDTH 12.6 % (11.5-14.5)
--- NOTE | 2019-06-15 06:41 | NUR ---
I have reviewed and agree with all interventions, assessments performed and documented by NAHOMY Becerra.
--- NOTE | 2019-06-15 06:57 | NUR ---
Patient in room GREG 359. I have received report from Nicolasa COREA and Mariam COREA and had the opportunity to ask questions and assume patient care.
[2019-06-15 07:00] VITALS: BP 87/38
[2019-06-15 07:03] LABS: ALANINE AMINOTRANSFERASE 103 U/L (12-78); ALBUMIN 2.5 G/DL (3.4-5.0); ALBUMIN/GLOBULIN RATIO 0.9 (1.1-1.5); ALKALINE PHOSPHATASE 30 IU/L (46-116); ANION GAP 6 (8-16); ASPARTATE AMINO TRANSFERASE 161 U/L (10-37); BILIRUBIN,TOTAL 0.3 MG/DL (0.1-1.0); BLOOD UREA NITROGEN 9 MG/DL (7-18); BUN/CREATININE RATIO 11.7 (6.6-38.0); CALCIUM 7.6 MG/DL (8.5-10.1); CHLORIDE 111 MMOL/L (99-107); CREATININE 0.77 MG/DL (0.40-0.90); GLUCOSE 84 MG/DL (70-104); POTASSIUM 4.1 MMOL/L (3.5-5.1); SODIUM 145 MMOL/L (135-145); TOTAL CARBON DIOXIDE 28.1 MMOL/L (24-32); TOTAL PROTEIN 5.4 G/DL (6.4-8.2); eGFR 77 ML/MIN
[2019-06-15 07:04] LABS: CREATINE KINASE 5724 U/L (26-192)
[2019-06-15] MEDS: docusate sod 100mg capsule PO SCH ×2 (07:37→19:36)
[2019-06-15] MEDS: levoTHYROXINE 25mcg tablet PO SCH (07:37)
[2019-06-15] MEDS: oxybutynin 5mg tablet PO SCH ×3 (07:37→19:38)
[2019-06-15] MEDS: heparin, porcine 5000 units/ml vial SQ SCH ×2 (07:37→19:36)
[2019-06-15] MEDS: citalopram 20mg tablet PO SCH (07:37)
[2019-06-15] MEDS: K and/or MAG REPLACEMENT MC SCH (08:00)
[2019-06-15 11:00] VITALS: BP 85/39
--- NOTE | 2019-06-15 14:40 | NUR ---
WOUND INFECTION EDUCATION PROVIDED BY WOUND CARE 1. Patient instructed to call their primary doctor, or go the ED immediately if any of the following symptoms occur: * Increased pain in wound * Increase in drainage from the wound * Redness in the skin surrounding the wound * Warmth in the skin surrounding the wound * Bleeding from the wound * Temperature of 101 or greater 2. If any of these occur while in the hospital tell a nurse immediately. Addendum: 06/15/19 at 1442 by Lorie Lopez RN Amended: Links added.
--- NOTE | 2019-06-15 18:05 | NUR ---
Received report from NAHOMY Ferreira. Patient is awake and alert on room air, in no apparent distress. Call light and items of frequent use within reach. Will continue to monitor.
--- NOTE | 2019-06-15 18:26 | NUR ---
Problems reprioritized. Patient report given, questions answered & plan of care reviewed with Nicolasa COREA.
[2019-06-15 20:00] VITALS: BP 101/57
[2019-06-16] VITALS: BP 86/44
[2019-06-16 04:39] LABS: BASOPHILS % (AUTO) 0.7 % (0-1); EOSINOPHILS # (AUTO) 0.2 X10'3 (0-0.9); EOSINOPHILS % (AUTO) 4.7 % (0-6); HEMOGLOBIN 10.8 g/dl (12.0-16.0); LYMPHOCYTES # (AUTO) 2.2 X10'3 (1.1-4.8); LYMPHOCYTES % (AUTO) 47.5 % (21-51); MEAN CORPUSCULAR HEMOGLOBIN 30.1 PG (27.0-31.0); MEAN CORPUSCULAR HGB CONC 33.6 g/dL (33.0-36.5); MEAN CORPUSCULAR VOLUME 89.8 FL (78-98); MEAN PLATELET VOLUME 8.4 FL (7.4-10.4); MONOCYTES # (AUTO) 0.4 X10'3 (0-0.9); MONOCYTES % (AUTO) 8.5 % (2-12); NEUTROPHILS # (AUTO) 1.8 X10'3 (1.8-7.7); NEUTROPHILS % (AUTO) 38.6 % (42-75); PLATELET COUNT 182 X10'3 (140-440); RED BLOOD COUNT 3.57 X10'6 (4.20-5.60); RED CELL DISTRIBUTION WIDTH 12.9 % (11.5-14.5); WHITE BLOOD COUNT 4.6 X10'3 (4.5-11.0)
[2019-06-16 05:05] LABS: ALANINE AMINOTRANSFERASE 96 U/L (12-78); ALBUMIN 2.7 G/DL (3.4-5.0); ALKALINE PHOSPHATASE 32 IU/L (46-116); ANION GAP 7 (8-16); ASPARTATE AMINO TRANSFERASE 114 U/L (10-37); BILIRUBIN,TOTAL 0.3 MG/DL (0.1-1.0); BLOOD UREA NITROGEN 9 MG/DL (7-18); BUN/CREATININE RATIO 10.3 (6.6-38.0); CHLORIDE 110 MMOL/L (99-107); CREATININE 0.87 MG/DL (0.40-0.90); GLUCOSE 88 MG/DL (70-104); POTASSIUM 3.9 MMOL/L (3.5-5.1); SODIUM 145 MMOL/L (135-145); TOTAL CARBON DIOXIDE 27.8 MMOL/L (24-32); TOTAL PROTEIN 5.5 G/DL (6.4-8.2); eGFR 67 ML/MIN
[2019-06-16 05:12] LABS: CREATINE KINASE 3505 U/L (26-192)
--- NOTE | 2019-06-16 06:20 | NUR ---
Problems reprioritized. Patient report given, questions answered & plan of care reviewed with NAHOMY Neil.
--- NOTE | 2019-06-16 06:30 | NUR ---
Patient in room GREG 340. I have received report from Nicolasa COREA and had the opportunity to ask questions and assume patient care.
[2019-06-16 07:08] VITALS: BP 110/57
[2019-06-16] MEDS: K and/or MAG REPLACEMENT MC SCH (07:38)
[2019-06-16] MEDS: citalopram 20mg tablet PO SCH (07:40)
[2019-06-16] MEDS: docusate sod 100mg capsule PO SCH (07:40)
[2019-06-16] MEDS: levoTHYROXINE 25mcg tablet PO SCH (07:40)
[2019-06-16] MEDS: oxybutynin 5mg tablet PO SCH ×2 (07:40→13:00)
[2019-06-16] MEDS: heparin, porcine 5000 units/ml vial SQ SCH (07:46)
[2019-06-16] MEDS: HYDROcodone/acetaminophen 10/325mg tab PO PRN (07:46)
[2019-06-16] MEDS ORDERED: HYDR-4353 PO (08:34)
[2019-06-16 11:32] VITALS: BP 90/44
--- NOTE | 2019-06-16 12:05 | NUR ---
Patient discharge by resource nurse. Patient IV was taken out at time of discharge. Patient was educated on new medication and discharge packet was gone over with patient as well during this time. patient discharged into her own care. Patient was sent home with supplies for wounds and also Rx to hand deliver to the pharmacy. Patient was instructed to visit her primary care physician for stitches to be removed by the 23 of June and also instruction on showers and car at this time. Patient was taken down to [facility] via wheelchair where she was transported home in private vehicle.
== END 2019-06-16 12:05 | disposition home health service (06) | DRG 351 ==
LOC: ER 14:22 → ED HOLD 17:05 → EDBEDREQ 19:58 → SUR 3N 20:05
PROVIDERS: ADMIT Internal Medicine; ATTEND Internal Medicine
PROC: 0HQKXZZ Repair Right Lower Leg Skin, External Approach (ICD-10-PCS; principal; 2019-06-13)
PROC: 3E0234Z Introduction of Serum, Toxoid and Vaccine into Muscle, Percutaneous Approach (ICD-10-PCS; 2019-06-14)
DX: M62.82 Rhabdomyolysis (principal); N17.9 Acute kidney failure, unspecified; E87.0 Hyperosmolality and hypernatremia; E87.8 Other disorders of electrolyte and fluid balance, not elsewhere classified; E03.9 Hypothyroidism, unspecified; E86.0 Dehydration; F41.9 Anxiety disorder, unspecified; K21.9 Gastro-esophageal reflux disease without esophagitis; S81.811A Laceration without foreign body, right lower leg, initial encounter; W01.198A Fall on same level from slipping, tripping and stumbling with subsequent striking against other object, initial encounter; Z96.653 Presence of artificial knee joint, bilateral; F32.9 Major depressive disorder, single episode, unspecified; Z60.2 Problems related to living alone; G89.29 Other chronic pain; R74.0 Nonspecific elevation of levels of transaminase and lactic acid dehydrogenase [LDH]; Z79.899 Other long term (current) drug therapy; Z23 Encounter for immunization; Y93.89 Activity, other specified; Y92.098 Other place in other non-institutional residence as the place of occurrence of the external cause; Y99.8 Other external cause status; Z88.0 Allergy status to penicillin; Z88.2 Allergy status to sulfonamides; Z88.1 Allergy status to other antibiotic agents; Z91.040 Latex allergy status
CPT/HCPCS: 12004; 36415; 70450; 71045; 72125; 72128; 73521; 73564; 73590; 73610; 80053; 81001; 82550; 82948; 83880; 84443; 85025; 85610; 87081; 90471; 90732; 93005; 96361; 96374; 97110; 97161; 97530; 99285; G0378; J1644; J2270; J7030; J7120

== ENCOUNTER 2019-06-18 17:10 | Emergency (ER) | payer MEDICAID ==
[~2019-06-18] VITALS: Ht 162.6 cm; Wt 101.0 kg
[~2019-06-18 17:10] MED LIST changes: +BACL10TA2 PO; +BUPR1PAT9; +CLON1TAB12 PO; +DOCU-267 PO; +ESOM40CA54; +HYDR-4353 PO; -METO25TA6 PO; +PROC10TA10 PO; +SOLI10TA7 PO
[2019-06-18 17:19] VITALS: BP 132/81
== END 2019-06-18 21:02 | disposition left against medical advice (07) ==
LOC: ER 17:11
DX: L08.9 Local infection of the skin and subcutaneous tissue, unspecified (principal); Z53.21 Procedure and treatment not carried out due to patient leaving prior to being seen by health care provider

== ENCOUNTER 2019-06-20 17:33 | Inpatient (IN) | payer MEDICAID ==
[~2019-06-20] VITALS: Ht 162.6 cm; Wt 100.0 kg
[2019-06-20] MEDS ORDERED: HYDROcodone/acetaminophen 5mg/325mg tablet PO ONE (18:15)
[2019-06-20 18:51] LABS: BASOPHILS % (AUTO) 0.7 % (0-1); EOSINOPHILS # (AUTO) 0.2 X10'3 (0-0.9); EOSINOPHILS % (AUTO) 3.3 % (0-6); HEMATOCRIT 36.3 % (35.0-45.0); HEMOGLOBIN 12.1 g/dl (12.0-16.0); LYMPHOCYTES # (AUTO) 1.9 X10'3 (1.1-4.8); LYMPHOCYTES % (AUTO) 33.1 % (21-51); MEAN CORPUSCULAR HEMOGLOBIN 29.7 PG (27.0-31.0); MEAN CORPUSCULAR HGB CONC 33.3 g/dL (33.0-36.5); MEAN CORPUSCULAR VOLUME 89.3 FL (78-98); MEAN PLATELET VOLUME 7.6 FL (7.4-10.4); MONOCYTES # (AUTO) 0.6 X10'3 (0-0.9); MONOCYTES % (AUTO) 9.8 % (2-12); NEUTROPHILS # (AUTO) 3.1 X10'3 (1.8-7.7); NEUTROPHILS % (AUTO) 53.1 % (42-75); PLATELET COUNT 260 X10'3 (140-440); RED BLOOD COUNT 4.06 X10'6 (4.20-5.60); RED CELL DISTRIBUTION WIDTH 13.5 % (11.5-14.5); WHITE BLOOD COUNT 5.9 X10'3 (4.5-11.0)
[2019-06-20 19:29] LABS: ALANINE AMINOTRANSFERASE 92 U/L (12-78); ALBUMIN 3.3 G/DL (3.4-5.0); ALBUMIN/GLOBULIN RATIO 0.9 (1.1-1.5); ALKALINE PHOSPHATASE 43 IU/L (46-116); ANION GAP 7 (8-16); ASPARTATE AMINO TRANSFERASE 49 U/L (10-37); BILIRUBIN,TOTAL 0.2 MG/DL (0.1-1.0); BLOOD UREA NITROGEN 8 MG/DL (7-18); BUN/CREATININE RATIO 8.5 (6.6-38.0); CALCIUM 8.7 MG/DL (8.5-10.1); CHLORIDE 104 MMOL/L (99-107); CREATININE 0.94 MG/DL (0.40-0.90); GLUCOSE 95 MG/DL (70-104); POTASSIUM 4.4 MMOL/L (3.5-5.1); SODIUM 141 MMOL/L (135-145); TOTAL PROTEIN 6.9 G/DL (6.4-8.2); eGFR 61 ML/MIN
[2019-06-20] MEDS ORDERED: acetaminophen 325mg tablet PO PRN (21:00)
[2019-06-20] MEDS ORDERED: mag hydrox/Alum hydrox/simeth 30ml oral suspension PO PRN (21:00)
[2019-06-20] MEDS ORDERED: ondansetron/PF 4mg/2ml inj IV PRN (21:00)
[2019-06-20] MEDS ORDERED: magnesium hydroxide 30ml (MOM) UD suspension PO PRN (21:00)
--- NOTE | 2019-06-20 21:14 | NUR ---
PHOTOS TAKEN AND PLACED INTO CHART OF RIGHT LOWER LEG LACERATION WITH SURROUNDING SKIN HOT AND REDDENED AND HER RIGHT POSTERIOR SHOULDER ABRASION APPEARS HEALING WITH SURROUNDING BRUISING IN VARIUOS COLORS. FOAM DRESSING REMOVED FROM COCCYX. COCCYX CLEAR. PATIENT STATES THAT THE PATCH WAS PLACED ON HER COCCYX DURING HER LAST ADMISSION
[2019-06-20] MEDS ORDERED: proCHLORperazine 10mg tablet PO PRN (21:15)
[2019-06-20] MEDS ORDERED: docusate sod 100mg capsule PO PRN (21:15)
[2019-06-20] MEDS ORDERED: baclofen 10mg tablet PO PRN (21:15)
--- NOTE | 2019-06-20 21:15 | NUR ---
PER DR RUSH REQUEST PATIENT'S BODY EXCEPT PERIANAL/GENITAL FOLDS OBSERVED FOR ANY MEDICATION PATCHES: NO PATCHES NOTED ON PATIENT. PATIENT STATES THAT SHE HAS NOT USED HER BUTRANS PATCH 15 MG SINCE ABOUT A WEEK AGO "BECAUSE I WAS ON [place]".
[2019-06-20] MEDS ORDERED: BUPR1PAT2 TD (21:28)
[2019-06-20 22:00] VITALS: BP 128/74
--- NOTE | 2019-06-20 22:00 | NUR ---
Patient in room ORTHO 4007. I have received report from Jorge Alberto COREA from the ER and had the opportunity to ask questions and assume patient care.
[2019-06-20] MEDS: normal saline 1000ml 1,000 ML IV SCH (22:11)
[2019-06-20] MEDS: VANCOmycin 1250MG/NS 250ml Bag 250 ML IV SCH (22:11)
[2019-06-20] MEDS: HYDROcodone/acetaminophen 5mg/325mg tablet PO PRN (22:52)
[2019-06-20] MEDS: clonazePAM 1mg tablet PO PRN (22:56)
[2019-06-21 06:00] VITALS: BP 104/55
[2019-06-21] MEDS: HYDROcodone/acetaminophen 5mg/325mg tablet PO PRN ×3 (08:01→21:16)
[2019-06-21] MEDS: oxybutynin 5mg tablet PO SCH ×3 (08:01→21:16)
[2019-06-21] MEDS: citalopram 20mg tablet PO SCH (08:02)
[2019-06-21] MEDS: heparin, porcine 5000 units/ml vial SQ SCH ×2 (08:02→20:14)
[2019-06-21] MEDS: levoTHYROXINE 25mcg tablet PO SCH (08:02)
[2019-06-21 09:14] LABS: EOSINOPHILS # (AUTO) 0.2 X10'3 (0-0.9); EOSINOPHILS % (AUTO) 3.9 % (0-6); HEMATOCRIT 36.8 % (35.0-45.0); HEMOGLOBIN 12.3 g/dl (12.0-16.0); LYMPHOCYTES # (AUTO) 1.5 X10'3 (1.1-4.8); LYMPHOCYTES % (AUTO) 30.6 % (21-51); MEAN CORPUSCULAR HEMOGLOBIN 30.1 PG (27.0-31.0); MEAN CORPUSCULAR HGB CONC 33.4 g/dL (33.0-36.5); MEAN PLATELET VOLUME 7.9 FL (7.4-10.4); MONOCYTES # (AUTO) 0.6 X10'3 (0-0.9); MONOCYTES % (AUTO) 12.8 % (2-12); NEUTROPHILS # (AUTO) 2.6 X10'3 (1.8-7.7); NEUTROPHILS % (AUTO) 51.7 % (42-75); PLATELET COUNT 270 X10'3 (140-440); RED BLOOD COUNT 4.09 X10'6 (4.20-5.60); RED CELL DISTRIBUTION WIDTH 13.4 % (11.5-14.5)
[2019-06-21 09:28] LABS: ALANINE AMINOTRANSFERASE 83 U/L (12-78); ALBUMIN 3.1 G/DL (3.4-5.0); ALBUMIN/GLOBULIN RATIO 0.9 (1.1-1.5); ALKALINE PHOSPHATASE 41 IU/L (46-116); ANION GAP 7 (8-16); ASPARTATE AMINO TRANSFERASE 44 U/L (10-37); BLOOD UREA NITROGEN 10 MG/DL (7-18); BUN/CREATININE RATIO 10.6 (6.6-38.0); CALCIUM 9.1 MG/DL (8.5-10.1); CHLORIDE 108 MMOL/L (99-107); CREATININE 0.94 MG/DL (0.40-0.90); GLUCOSE 92 MG/DL (70-104); POTASSIUM 4.1 MMOL/L (3.5-5.1); SODIUM 144 MMOL/L (135-145); TOTAL PROTEIN 6.6 G/DL (6.4-8.2); eGFR 61 ML/MIN
[2019-06-21] MEDS: VANCOmycin 1250MG/NS 250ml Bag 250 ML IV SCH ×2 (09:28→21:16)
[2019-06-21 10:00] VITALS: BP 100/58
[2019-06-21] MEDS ORDERED: FLU VACC QS2019-20 36MOS UP/PF 60 MCG/0.5 ML SYRINGE IMVAC ONE (10:00)
[2019-06-21 10:12] LABS: BILIRUBIN,TOTAL 0.2 MG/DL (0.1-1.0)
[2019-06-21 18:00] VITALS: BP 94/53
--- NOTE | 2019-06-21 18:53 | NUR ---
Problems reprioritized. Patient report given, questions answered & plan of care reviewed with NAHOMY Khan.
[2019-06-21] MEDS: lactobacillus rhamnosus 10,000 MMU CELLS/CAPSULE PO SCH (20:13)
[2019-06-21] MEDS: clonazePAM 1mg tablet PO PRN (21:16)
[2019-06-21] MEDS: normal saline 1000ml 1,000 ML IV SCH (21:30)
[2019-06-21 22:00] VITALS: BP 103/47
[2019-06-21] MEDS ORDERED: HYDROcodone/acetaminophen 10/325mg tab PO ONE (23:00)
[2019-06-22] MEDS: HYDROcodone/acetaminophen 10/325mg tab PO PRN ×2 (04:45→09:30)
[2019-06-22 06:00] VITALS: BP 104/53
[2019-06-22] MEDS: levoTHYROXINE 25mcg tablet PO SCH (07:25)
[2019-06-22] MEDS: citalopram 20mg tablet PO SCH (07:26)
[2019-06-22] MEDS: oxybutynin 5mg tablet PO SCH (07:26)
[2019-06-22] MEDS: lactobacillus rhamnosus 10,000 MMU CELLS/CAPSULE PO SCH (07:26)
[2019-06-22] MEDS: heparin, porcine 5000 units/ml vial SQ SCH (07:27)
[2019-06-22 07:30] LABS: BASOPHILS # (AUTO) 0.1 X10'3 (0-0.2); BASOPHILS % (AUTO) 1.3 % (0-1); EOSINOPHILS # (AUTO) 0.2 X10'3 (0-0.9); EOSINOPHILS % (AUTO) 3.7 % (0-6); HEMATOCRIT 38.2 % (35.0-45.0); HEMOGLOBIN 12.7 g/dl (12.0-16.0); LYMPHOCYTES # (AUTO) 2.3 X10'3 (1.1-4.8); LYMPHOCYTES % (AUTO) 46.1 % (21-51); MEAN CORPUSCULAR HEMOGLOBIN 29.9 PG (27.0-31.0); MEAN CORPUSCULAR HGB CONC 33.1 g/dL (33.0-36.5); MEAN CORPUSCULAR VOLUME 90.4 FL (78-98); MONOCYTES # (AUTO) 0.6 X10'3 (0-0.9); MONOCYTES % (AUTO) 11.8 % (2-12); NEUTROPHILS # (AUTO) 1.9 X10'3 (1.8-7.7); NEUTROPHILS % (AUTO) 37.1 % (42-75); PLATELET COUNT 295 X10'3 (140-440); RED BLOOD COUNT 4.23 X10'6 (4.20-5.60); RED CELL DISTRIBUTION WIDTH 13.6 % (11.5-14.5)
[2019-06-22 07:41] LABS: ALANINE AMINOTRANSFERASE 72 U/L (12-78); ALBUMIN 3.2 G/DL (3.4-5.0); ALBUMIN/GLOBULIN RATIO 0.8 (1.1-1.5); ALKALINE PHOSPHATASE 48 IU/L (46-116); ANION GAP 8 (8-16); ASPARTATE AMINO TRANSFERASE 33 U/L (10-37); BILIRUBIN,TOTAL 0.2 MG/DL (0.1-1.0); BLOOD UREA NITROGEN 11 MG/DL (7-18); CALCIUM 8.4 MG/DL (8.5-10.1); CHLORIDE 106 MMOL/L (99-107); CREATININE 0.92 MG/DL (0.40-0.90); GLUCOSE 94 MG/DL (70-104); POTASSIUM 4.1 MMOL/L (3.5-5.1); SODIUM 142 MMOL/L (135-145); TOTAL CARBON DIOXIDE 28.4 MMOL/L (24-32); TOTAL PROTEIN 7.1 G/DL (6.4-8.2); eGFR 63 ML/MIN
[2019-06-22] MEDS ORDERED: levoFLOXACIN-Levaquin 750MG/D5 150 ML IV SCH (08:00)
[2019-06-22] MEDS: VANCOmycin 1250MG/NS 250ml Bag 250 ML IV SCH (09:25)
[2019-06-22 10:00] VITALS: BP 106/61
[2019-06-22] MEDS ORDERED: LEVO750T21 PO (10:45)
--- NOTE | 2019-06-22 10:51 | NUR ---
Right lower leg sutures removed without complication. Optifoam dressing applied to wound. Patient tolerated procedure well.
--- NOTE | 2019-06-22 14:26 | NUR ---
Patient was cleared to discharge home with home health services. Vital signs stable at time of discharge. New antibiotic prescription called into [facility] on [address]. PIV DC'd, tip intact. Tele removed. Patient verbalized understanding regarding the importance of following up with primary physician and monitoring signs and symptoms of worsening infection. Patient was also given instructions regarding fall precautions at home. Patient was escorted to her vehicle and she left in stable condition.
[2019-06-23] MEDS ORDERED: VANCOMYCIN LEVEL IV ONE (08:30)
== END 2019-06-22 12:30 | disposition home health service (06) | DRG 383 ==
LOC: ER 17:34 → ED HOLD 21:05 → ORTHO 4S 21:35
PROVIDERS: ADMIT Internal Medicine; ATTEND Family Medicine
DX: L03.115 Cellulitis of right lower limb (principal); M62.82 Rhabdomyolysis; E03.9 Hypothyroidism, unspecified; E78.5 Hyperlipidemia, unspecified; F41.9 Anxiety disorder, unspecified; Z96.653 Presence of artificial knee joint, bilateral; F32.9 Major depressive disorder, single episode, unspecified; R74.0 Nonspecific elevation of levels of transaminase and lactic acid dehydrogenase [LDH]; G89.29 Other chronic pain; Z88.1 Allergy status to other antibiotic agents; Z88.0 Allergy status to penicillin; Z88.2 Allergy status to sulfonamides; Z91.040 Latex allergy status; Z79.899 Other long term (current) drug therapy
CPT/HCPCS: 36415; 80053; 83605; 84145; 85025; 87040; 87081; 97116; 97161; 97530; 99285; G0378; J1644; J1956; J3370; J7030

== ENCOUNTER → 2020-11-15 | Outpatient (CLI) | payer MEDICAID ==
[~2020-11-15] MED LIST changes: +BUPR1PAT2 TD; -BUPR1PAT9; +LIDOcaine 2% 5ml jelly ONE
== END | disposition home or self-care (01) ==
LOC: WOUND CARE 11:37
PROVIDERS: ATTEND Nurse Practitioner
DX: E11.622 Type 2 diabetes mellitus with other skin ulcer (principal); L97.812 Non-pressure chronic ulcer of other part of right lower leg with fat layer exposed; L97.212 Non-pressure chronic ulcer of right calf with fat layer exposed; I10 Essential (primary) hypertension; E78.5 Hyperlipidemia, unspecified; E03.9 Hypothyroidism, unspecified; G89.29 Other chronic pain; K21.9 Gastro-esophageal reflux disease without esophagitis; E66.01 Morbid (severe) obesity due to excess calories; M19.90 Unspecified osteoarthritis, unspecified site; I89.0 Lymphedema, not elsewhere classified; I87.2 Venous insufficiency (chronic) (peripheral); F41.9 Anxiety disorder, unspecified; F32.9 Major depressive disorder, single episode, unspecified; F17.200 Nicotine dependence, unspecified, uncomplicated; Z79.82 Long term (current) use of aspirin; Z98.890 Other specified postprocedural states; Z79.899 Other long term (current) drug therapy; Z96.653 Presence of artificial knee joint, bilateral; Z68.39 Body mass index [BMI] 39.0-39.9, adult
CPT/HCPCS: 15271; Q4196

== ENCOUNTER 2025-01-02 11:33 | Emergency (ER) | payer MEDICAID ==
[~2025-01-02] VITALS: Ht 162.6 cm; Wt 102.8 kg
[~2025-01-02 11:33] MED LIST changes: +DOCU-262 PO; -DOCU-267 PO; -ESOM40CA54; +ESOM40CA66; -LIDOcaine 2% 5ml jelly ONE; -PROC10TA10 PO; +PROC10TA97 PO
[2025-01-02 11:57] VITALS: TEMP 97.8
[2025-01-02] MEDS ORDERED: OXYC20TA40 PO (12:49)
[2025-01-02 13:06] VITALS: BP 100/145; PULSE 84; RESP 18; O2SAT 97
== END 2025-01-02 13:12 | disposition home or self-care (01) ==
LOC: ER 11:34
DX: M54.2 Cervicalgia (principal); E03.9 Hypothyroidism, unspecified; F32.A Depression, unspecified; Z88.0 Allergy status to penicillin; Z88.1 Allergy status to other antibiotic agents; Z88.2 Allergy status to sulfonamides; Z90.89 Acquired absence of other organs
CPT/HCPCS: 99283

== ENCOUNTER 2025-03-24 09:08 | Emergency (ER) | payer MEDICAID ==
[~2025-03-24] VITALS: Ht 162.6 cm; Wt 45.5 kg
[2025-03-24 09:11] VITALS: BP 163/93; PULSE 110; RESP 20; TEMP 98.4; O2SAT 97
--- NOTE | 2025-03-24 09:26 | Physician Documentation ---
HPI ~ General Chief Complaint: Medication Refill Stated Complaint: MED REQUEST Time Seen by MD: 09:23 Primary Medical Doctor: Dr. Sultana History of Present Illness HPI Comments This is a 64-year-old female on chronic oxycodone prescription, most recent refill for 28 days was obtained on 03/02/2025, evidently spilled on with the parking lot on 03/03/2025, and now is running out of the medicine. She did not attempt to contact her original prescriber. She is here for medication refill. No other complaints. Denies any new pain. Denies concerns for tobacco, alcohol or illicit substances use Medication Reconciliation Allergies: Coded Allergies: Penicillins (Verified Allergy, Intermediate, 03/24/25) Sulfa (Sulfonamide Antibiotics) (Verified Allergy, Intermediate, 03/24/25) amoxicillin (Verified Allergy, Intermediate, 03/24/25) cephalexin (Verified Allergy, Intermediate, 03/24/25) clarithromycin (Verified Allergy, Intermediate, 03/24/25) clavulanic acid (Verified Allergy, Intermediate, 03/24/25) erythromycin base (Verified Allergy, Intermediate, 03/24/25) tetracycline (Verified Allergy, Intermediate, 03/24/25) latex (Verified Allergy, Unknown, 03/24/25) Scheduled Buprenorphine (Butrans), 1 PATCH TD Q7D, (Reported) Citalopram Hydrobromide (Citalopram HBr), 20 MG PO DAILY Levothyroxine Sodium (Levothyroxine Sodium), 1 TAB PO DAILY, (Reported) Solifenacin Succinate (Solifenacin Succinate), 1 TAB PO DAILY, (Reported) Scheduled PRN Baclofen (Baclofen), 1 TAB PO TID PRN for muscle spasms, (Reported) Clonazepam (Clonazepam), 1 TAB PO PRN PRN for anxiety, (Reported) Docusate Sodium (Dok), 1 CAP PO 5XD PRN for constipation, (Reported) Hydrocodone Bit/Acetaminophen (Hertel 10-325 Tablet), 1 TAB PO Q6H PRN for severe pain Prochlorperazine Maleate (Prochlorperazine Maleate), 1 TAB PO BID PRN for nausea/vomiting, (Reported) Miscellaneous Medications Esomeprazole Magnesium (Esomeprazole Magnesium), (Reported) Past Medical History Past Medical History: *RENAL/*, Hypothyroidism, Depression Past Surgical History: orthopedic surgeries, tonsillectomy Alcohol Use: None Drug Use: none Lives with: Alone Lives In: Home Occupation: unemployed Review of Systems ROS 10 point review of systems was performed and unless noted above in HPI is negative for acute process/complaint. Physical Exam Physical Exam Vital Signs: Temperature: 98.4, Heart Rate: 110, Respiratory Rate: 20, BP: 163/93, Pulse Oximetry: 97, Weight: 45.450 Oxygen Flow Rate: 0 Physical Exam Physical examination: GENERAL: Awake, alert, oriented, GCS 15, no apparent distress, non-toxic appeari ng, answers questions, follows commands appropriately. HEENT: Atraumatic, normocephalic, pupils equal, extraocular muscles intact Active gross movements, sclerae anicteric, mucus membranes moist, no stridor. NECK: Midline, no JVD CARDIOVASCULAR: Good skin perfusion without evidence of pallor, mottling. PULMONARY: Nonlabored, symmetric chest rise, no audible wheezing, no accessory muscle use, no respiratory distress, speaking in full sentences. GASTROINTESTINAL: Not distended. NEUROLOGIC: Lucid with normal mental status. Normal facial symmetry. Moves all extremities symmetrically and with purpose. No truncal ataxia. Speech is fluid without evidence of dysarthria or aphasia, no focal deficits appreciated. EXTREMITIES: Acute deformities Skin: warm, dry PSYCHIATRIC: Normal affect, normal insight, normal concentration. Focused exam: [] Progress Results/Orders Results/Orders Vital Signs 03/24/25 09:11 Temp 98.4 Pulse 110 Resp 20 B/P (MAP) 163/93 Pulse Ox 97 O2 Flow Rate 0 Medical Decision Making Findings Facility Status: ED Holds, [facility] process The plan was discussed with the patient, who demonstrates clear understanding of the plan and is in agreement with the plan unless otherwise noted in the chart. All questions have been answered, all concerns were addressed unless otherwise documented. I was available throughout their ED stay for frequent reassessment and questions. Differential Diagnoses (considered and possible or likely): [Chronic pain, opioid use disorder/opioid dependence, encounter for medication refill] ??Differential Diagnoses (considered and unlikely, not requiring evaluation currently): [Denies any new somatic complaints] MDM Data Please see HPI for the following: Independent Historians and external Records Review. Historian: [Patient] Independent Historians: ?[Review of cures report] Medication Management: [Reviewed medication list] Social History and determinants: [Reviewed] Please see the body of the note for the following: Any independent interpretations of ECG, imaging studies. All vitals signs/haemodynamics, ordered tests were independently reviewed and interpreted by myself. Nursing triage complaint and vitals reviewed, additional nursing notes were reviewed as available and I agree unless otherwise noted or documented in contradiction in the chart Vital Signs: Independently reviewed Labs: Independently interpreted Imaging: Independently interpreted Old Medical Records: Independently reviewed, see HPI for relevant summary and information Pulse Oximetry: [94%] interpreted as [normal on room air] by me Additionally notably showing: [Hemodynamically stable] Tests considered but not ordered include: [Hematologic workup and imaging has been considered but does not appear to be necessary given clinical nature of diagnosis] Social Determinants of Health Impact: Patient was [facility] in [facility] [place] to [facility] due to below par ratio of patient to medical providers. [] Comorbid Conditions Impacting Present Evaluation and Care/Treatment: [Chronic pain, opioid dependent] Management Discussions with other Healthcare Providers: [None] Treatment and Disposition Medication Management (Given or considered): []. See EMR for details Consideration for Hospitalization/Escalation/Deescalation of Care: Admission for observation has been considered, [however the patient is able to tolerate p.o., their symptoms are controlled, they are able to rely on oral medications, and their chief complaint/diagnosis can be managed on outpatient basis.] ?ED Course:?[I explained to the patient that the emergency department does not provide refills for opioid medications, she has to contact her original prescriber. I declined to refill her pain medications.] ?Shared decision making:?[Patient is hemodynamically stable for discharge home with follow with their primary care provider. [ ] Specific and cautious return precautions provided and discussed with full understanding. Any incidental findings were also discussed and follow up recommendations given. [] All questions answered. Patient/family were able to verbalize back return precautions. Patient/family agree to plan. Copies of imaging and laboratory studies were provided.] Code status:?FULL Please see the full Electronic Medical Record for full details of nursing documentation, medications list, other records of complete past medical history and conditions, vital signs, laboratory studies, and any radiologic study interpretations by radiologists. Portions of this note were completed using TrueView dictation software and as a result there may exist minor errors in spelling. I have reviewed elements of past family and social history and agree as included in note. Departure Disposition: 01 HOME / SELF CARE / HOMELESS Impression: Primary Impression: Encounter for medication refill Additional Impressions: Opioid dependence Chronic pain Additional Impression Text Emergency department does not provide refills for opioid medications Condition: Stable Discharge Instructions: Medicine Refill at the Emergency Department Referrals: NO PRIMARY CARE PROVIDER (PCP) Education Educated: Patient Educated regarding: diagnosis, need for follow up Signature Scribe Signature: No scribe Attestation: This note accurately reflects clinical decisions, work performed by myself, DO JENY Cuellar NICHOLAS M DO Mar 24, 2025 09:26
== END 2025-03-24 09:31 | disposition home or self-care (01) ==
LOC: ER 09:09
DX: F11.20 Opioid dependence, uncomplicated (principal); G89.29 Other chronic pain; E03.9 Hypothyroidism, unspecified; F32.A Depression, unspecified; Z88.0 Allergy status to penicillin; Z88.2 Allergy status to sulfonamides; Z88.1 Allergy status to other antibiotic agents; Z76.0 Encounter for issue of repeat prescription; Z79.899 Other long term (current) drug therapy; Z56.0 Unemployment, unspecified; Z60.2 Problems related to living alone
CPT/HCPCS: 99281

== ENCOUNTER 2025-08-18 10:30 | Emergency (ER) | payer MEDICAID ==
[~2025-08-18] VITALS: Ht 162.6 cm; Wt 90.0 kg
[2025-08-18 10:31] VITALS: TEMP 98
--- NOTE | 2025-08-18 10:54 | Physician Documentation ---
History of Present Illness CC: SUSAN BRAVO MD ~ Chief Complaint: Mechanical Fall Stated Complaint: FALL Time Seen by MD: 10:34 Primary Medical Doctor: Dr. Kayy GUARDADO This is a 64-year-old female with multiple back surgeries, history of chronic lymphedema and chronic weakness in bilateral extremities, recurrent falls was brought to the ER by EMS after her [employer] worker found her on the floor. Patient endorses that she usually uses a walker to ambulate and fell down at 10:30 p.m. at her house (2nd time in the month). There was no loss of consciousness and she was not on blood thinners but she her legs gave away and slightly hit her head. However there are no signs of trauma or injuries/abrasions on the body. Patient stayed on the floor for the whole night till her [employer] worker found her in the morning. Patient complains of 8/10 back pain which is chronic and takes Jupiter at home for chronic back pain. Loss Of Consciousness: no loss of consciousness Tetanus within 5 Years?: Yes Medication Reconciliation Allergies: Coded Allergies: Penicillins (Verified Allergy, Intermediate, 03/24/25) Sulfa (Sulfonamide Antibiotics) (Verified Allergy, Intermediate, 03/24/25) amoxicillin (Verified Allergy, Intermediate, 03/24/25) cephalexin (Verified Allergy, Intermediate, 03/24/25) clarithromycin (Verified Allergy, Intermediate, 03/24/25) clavulanic acid (Verified Allergy, Intermediate, 03/24/25) erythromycin base (Verified Allergy, Intermediate, 03/24/25) tetracycline (Verified Allergy, Intermediate, 03/24/25) latex (Verified Allergy, Unknown, 03/24/25) Scheduled Buprenorphine (Butrans), 1 PATCH TD Q7D, (Reported) Citalopram Hydrobromide (Citalopram HBr), 20 MG PO DAILY Levothyroxine Sodium (Levothyroxine Sodium), 1 TAB PO DAILY, (Reported) Solifenacin Succinate (Solifenacin Succinate), 1 TAB PO DAILY, (Reported) Scheduled PRN Baclofen (Baclofen), 1 TAB PO TID PRN for muscle spasms, (Reported) Clonazepam (Clonazepam), 1 TAB PO PRN PRN for anxiety, (Reported) Docusate Sodium (Dok), 1 CAP PO 5XD PRN for constipation, (Reported) Hydrocodone Bit/Acetaminophen (Jupiter 10-325 Tablet), 1 TAB PO Q6H PRN for severe pain Prochlorperazine Maleate (Prochlorperazine Maleate), 1 TAB PO BID PRN for nausea/vomiting, (Reported) Miscellaneous Medications Esomeprazole Magnesium (Esomeprazole Magnesium), (Reported) Past Medical History Past Medical History: *RENAL/*, Hypothyroidism, Depression Past Surgical History: orthopedic surgeries, tonsillectomy Alcohol Use: None Drug Use: none Lives with: Alone Lives In: Home Occupation: unemployed Review of Systems ROS Constitutional: Pain in lumbar spine, weakness in bilateral lower extremities. No fever, chills, dizziness,weight gain or loss Eyes: No pain, erythema, discharge, blurring of vision ENT: No sore throat, epistaxis, tinnitus Cardiovascular: No palpitations, syncope, lower extremity edema, paroxysmal nocturnal dyspnea Respiratory: No hemoptysis Gastrointestinal: Normal appetite. No nausea, vomiting, diarrhea, constipation, hematemesis, abdominal pain, bloating, melena or fresh blood Genitourinary: No frequency, urgency, nocturia, hematuria or dysuria Musculoskeletal: No arthralgias or myalgias Integumentary: No change in skin, hair, nails. No swelling, bruising, abrasions Neurologic: No headache Psychiatric: No delusions, depression, loss of interest in normal activity or change in sleep pattern, hallucinations, suicidal ideations Endocrine: No fatigue, weakness, polydipsia, polyuria, change in appetite, heat or cold intolerance, sweating, dry skin Hematological: No bleeding, petechiae, bruising Allergies: No asthma or urticaria Physical Exam Vital Signs: Temperature: 98.0, Heart Rate: 101, Respiratory Rate: 16, BP: 166/93, Pulse Oximetry: 95, Weight: 90.000 Oxygen Flow Rate: 0 Physical Exam General: Awake and Alert, no acute distress. HEENT: Conjunctiva pink, Sclera clear, Mucus Membranes moist Neck: Supple without masses and tenderness. Resp: Unlabored. Decreased breath sounds bilaterally. No wheeze or gallop, rubs Heart: Regular rhythm, normal S1 and S2, no rub, murmur or gallop, muffled heart sounds. Abdomen: Soft and non tender no organomegaly. Normal bowel sounds x4 quadrant normoactive. No guarding or rigidity. Extremities: Normal ROM, no swelling, nontender. No cyanosis,clubbing, 3+ nonpitting edema. Decreased sensation in bilateral lower extremities and power 2/5 in lower extremities and 4/5 in upper extremities. Cranial nerve examination is normal. 3+ nonpitting edema in bilateral lower extremities [employer]: Decreased strength and sensation in bilateral lower extremities. Skin: Warm and Dry. Progress Results/Orders Results/Orders Orders - LEPE,ANDREA ROBERTO, RES Chest,Single View (08/18/25 10:39) Monitor (08/18/25 10:39) Saline Lock (08/18/25 10:39) Oxygen (08/18/25 10:39) Hs Troponin I W Calculations (08/18/25 12:39) Hs Troponin I W Calculations (08/18/25 13:39) Normal Saline 1000ml (0.9% Sodium Chlori (08/18/25 11:00) Completed Orders - LEPE,ANDREA ROBERTO, RES Chest,Single View (08/18/25 10:39) Cbc/Diff (08/18/25 10:39) BMP (08/18/25 10:39) PBNP (08/18/25 10:39) Electrocardiogram (08/18/25 10:39) Hs Troponin I W Calculations (08/18/25 10:39) LA (08/18/25 10:48) Medications Received in ER Medications (Trade) Dose Ordered Sig/Tresa Route PRN Reason Start Time Stop Time Status Last Admin Dose Admin Sodium Chloride 1,000 ml @ 1,000 mls/hr ONCE ONCE IV 08/18/25 11:00 08/18/25 11:59 08/18/25 11:04 1,000 MLS/HR Vital Signs 08/18/25 08/18/25 08/18/25 10:31 11:00 11:00 Temp 98.0 Pulse 101 97 Resp 16 18 B/P (MAP) 166/93 87/ Pulse Ox 95 93 O2 Flow Rate 0 0 Laboratory Tests Test 08/18/25 11:01 White Blood Count 7.5 Red Blood Count 4.42 Hemoglobin 13.1 Hematocrit 39.0 Mean Corpuscular Volume 88.3 Mean Corpuscular Hemoglobin 29.7 Mean Corpuscular Hemoglobin Concent 33.6 Red Cell Distribution Width 14.2 Platelet Count 280 Mean Platelet Volume 7.5 Neutrophils (%) (Auto) 87.7 H Lymphocytes (%) (Auto) 6.2 L Monocytes (%) (Auto) 5.4 Eosinophils (%) (Auto) 0.2 Basophils (%) (Auto) 0.5 Neutrophils # (Auto) 6.6 Lymphocytes # (Auto) 0.5 L Monocytes # (Auto) 0.4 Eosinophils # (Auto) 0.0 Basophils # (Auto) 0.0 CBC Comment Sodium Level 136 Potassium Level 3.6 Chloride Level 98 L Carbon Dioxide Level 31.2 Anion Gap 7 L Blood Urea Nitrogen 8 Creatinine 0.96 H Estimated GFR/1.73 m2 59 BUN/Creatinine Ratio 8.3 L Glucose Level 108 H Lactic Acid Level 1.0 Calcium Level 8.8 Total Creatine Kinase 517 H Troponin I High Sensitivity 7 Pro-B-Type Natriuretic Peptide 175 H Albumin 3.9 Procalcitonin < 0.05 Chemistry Comments Medical Decision Making Additional information obtaine: rn cardiac rehab, other Findings Laboratory workup showed normal white count, lactic acid and procalcitonin, normal chest x-ray. Slightly elevated creatinine kinase of 517, patient received 1 L of normal saline bolus. UA Differential Dx:Considerations: Include: Closed head injury, Cardiac injury, Fracture(s), Intraabdominal injury, Pneumothorax, Cerebral contusion, Pulmonary contusion, Spine injury, Tracheal injury, Urological injury, Vascular injury, Abrasion(s), Contusion(s), Foreign body(s), Hematoma(s), Laceration(s), Encephalopathy, Other Departure Disposition: 01 HOME / SELF CARE / HOMELESS Impression: Primary Impression: Fall Condition: Stable Discharge Instructions: Fall Prevention in the Home, Adult, [id number] Additional Instructions: Follow up with your PCP in a week. Advise setting up fall precautions at home and medical alert pendant/bracelets. Advise follow up with physical therapy and plenty hydration. Return to ER if you have a headache, confusion, severe pain, bleeding. Use your walker while ambulating and move slowly when getting up from lying/sitting position. Avoid benzodiazepines. Referrals: NO PRIMARY CARE PROVIDER (PCP) Signature Scribe Signature: No scribe Attestation: PGY2 resident attestation: Patient was seen and examined with the attending physician Dr. eliza Diaz MD PGY 2 internal medicine resident ANDREA LEPE, RES Aug 18, 2025 10:54
[2025-08-18] MEDS: normal saline 1000ml 1,000 ML IV ONE (11:04)
--- NOTE | 2025-08-18 11:06 | ELECTROCARDIOGRAPH REPORT ---
[facility] Test Date: 2025-08-18 Test Time: 11:03:55 Pat Name: JANE CONLEY Department: [facility]-ER Patient ID: [id number] Room: Gender: F Machine Tool Mechanic: : [id number] Requested By: ANDREA LEPE Order Number: [id number] Reading MD: Dr. JANNETH Mueller Measurements Intervals [place] Rate: 93 P: 67 MO: 164 QRS: 69 QRSD: 104 T: 24 QT: 409 QTc: 509 Interpretive Statements Sinus tachycardia Ventricular premature complex Low voltage, precordial leads ST elevation, consider inferior injury Prolonged QT interval Artifact in lead(s) I,III,aVR,aVL and baseline wander in lead(s) I,aVL Electronically Signed On 08-19-2025 16:55:[address] JANNETH Mueller Please click the below link to view image of tracing.
[2025-08-18 11:19] LABS: MEAN PLATELET VOLUME 7.5 FL (7.4-10.4); RED CELL DISTRIBUTION WIDTH 14.2 % (11.5-14.5)
[2025-08-18 11:35] LABS: CREATININE 0.96 MG/DL (0.40-0.90); PRO BRAIN NATRIURETIC PEPTIDE 175 PG/ML (0-125); TOTAL CARBON DIOXIDE 31.2 MMOL/L (24-32); eCRCL 52 ML/MIN; eGFR 59 ML/MIN
--- NOTE | 2025-08-18 12:04 | RADIOLOGY REPORT ---
CHEST RADIOGRAPH Indication: CP Technique: Single frontal view of the chest was obtained Comparison: None FINDINGS: Lines and Tubes: None Lungs: No focal consolidation. Pleura: No effusion. No pneumothorax. Cardiomediastinal contours: Cardiomegaly. Bones: No acute osseous abnormality. IMPRESSION: No acute cardiopulmonary disease.
[2025-08-18 15:43] VITALS: BP 158/104; PULSE 98; RESP 16; O2SAT 100
== END 2025-08-18 16:03 | disposition home or self-care (01) ==
LOC: ER 10:30
DX: R60.0 Localized edema (principal); G89.29 Other chronic pain; E03.9 Hypothyroidism, unspecified; F32.A Depression, unspecified; Z88.0 Allergy status to penicillin; Z88.2 Allergy status to sulfonamides; Z88.1 Allergy status to other antibiotic agents; Z91.040 Latex allergy status; Z90.89 Acquired absence of other organs; Z79.899 Other long term (current) drug therapy; Z56.0 Unemployment, unspecified; Z60.2 Problems related to living alone; W18.30XA Fall on same level, unspecified, initial encounter; Y93.89 Activity, other specified; Y92.89 Other specified places as the place of occurrence of the external cause; Y99.8 Other external cause status
CPT/HCPCS: 36415; 71045; 80048; 82550; 83605; 83880; 84145; 84484; 85025; 93005; 96360; 99285; J7030